=== PATIENT | male | born 1940 | race Caucasian/White ===

== ENCOUNTER → 2016-10-26 | Outpatient (CLI) | payer OTHER, MEDICARE ==
[~2016-10-26] MED LIST: ASPI81TA28 PO; CETICHW4 PO; ESZO3TAB15 PO; FLM4 PO; FLV1 PO; HYDR12.55 PO; METO-551 PO; MULT-589 PO; PRD75 PO; PRED-301 PO; PRT40 PO; SIMV40TA4 PO; THM100 PO; VTMD1000 PO
[2016-10-26 12:07] LABS: BASO % 0.4 %; BASO ABS # 0.02 K/uL (0-0.2); COMPLETE YES; EOS % 2.7 %; HEMATOCRIT 39.3 % (42-52); IG% 0.2 %; LYMPH % 19.6 %; LYMPH ABS # 1.09 K/uL (1.2-3.4); MEAN CELL VOLUME 94.7 fL (80-100); MEAN CORPUSCULAR HEMOGLOBIN 32.5 pg (25-34); MEAN CORPUSCULAR HGB CONC 34.4 g/dl (32-36); MEAN PLATELET VOLUME 9.8 fL (7.4-10.4); MONO % 11.5 %; NEUT % 65.6 %; PLATELET COUNT 229 K/uL (130-400); RED BLOOD COUNT 4.15 M/uL (4.7-6.1); WHITE BLOOD COUNT 5.57 K/uL (4.8-10.8)
[2016-10-26 12:38] LABS: ALB/GLOB RATIO 1.1 (0.9-2); ALT/SGPT 18 U/L (12-78); AST/SGOT 14 U/L (15-37); BLOOD UREA NITROGEN 29 mg/dl (7-18); BUN/CREATININE RATIO 22.5 (10-20); CALCIUM 8.5 mg/dl (8.5-10.1); CARBON DIOXIDE 29 mmol/L (21-32); CHLORIDE 101 mmol/L (98-107); GLUCOSE 107 mg/dl (70-99); POTASSIUM 3.7 mmol/L (3.5-5.1); SODIUM 138 mmol/L (136-145)
[2016-10-26 12:50] LABS: ALKALINE PHOSPHATASE 80 U/L (45-117); CHOLESTEROL 262 mg/dl (0-200); CHOLESTEROL/HDL RATIO 4.2; HDL CHOLESTEROL 63 mg/dl; LDL CHOLESTEROL CALCULATED 159 mg/dl; TRIGLYCERIDES 199 mg/dl (0-150); URIC ACID 4.9 mg/dl (2.6-7.2); VERY LOW DENSITY LIPOPROT CALC 40 mg/dl
== END | disposition home or self-care (01) ==
LOC: C.LAB1850 10:35
PROVIDERS: ATTEND Internal Medicine
DX: D64.9 Anemia, unspecified (principal); E53.8 Deficiency of other specified B group vitamins; I48.91 Unspecified atrial fibrillation; E78.5 Hyperlipidemia, unspecified; R73.01 Impaired fasting glucose; M10.9 Gout, unspecified

== ENCOUNTER → 2017-04-25 | Outpatient (CLI) | payer OTHER, MEDICARE ==
[2017-04-25 10:12] LABS: BASO % 0.3 %; BASO ABS # 0.02 K/uL (0-0.2); COMPLETE YES; EOS % 2.3 %; HEMATOCRIT 41.6 % (42-52); IG% 0.3 %; LYMPH % 16.7 %; LYMPH ABS # 1.14 K/uL (1.2-3.4); MEAN CELL VOLUME 98.1 fL (80-100); MEAN CORPUSCULAR HEMOGLOBIN 32.8 pg (25-34); MEAN CORPUSCULAR HGB CONC 33.4 g/dl (32-36); MEAN PLATELET VOLUME 10.2 fL (7.4-10.4); MONO % 9.7 %; NEUT % 70.7 %; PLATELET COUNT 196 K/uL (130-400); RED BLOOD COUNT 4.24 M/uL (4.7-6.1); WHITE BLOOD COUNT 6.82 K/uL (4.8-10.8)
[2017-04-25 10:24] LABS: ALT/SGPT 22 U/L (12-78); BLOOD UREA NITROGEN 26 mg/dl (7-18); BUN/CREATININE RATIO 21.3 (10-20); CALCIUM 9.1 mg/dl (8.5-10.1); CARBON DIOXIDE 28 mmol/L (21-32); CHLORIDE 103 mmol/L (98-107); CHOLESTEROL 173 mg/dl (0-200); GLUCOSE 102 mg/dl (70-99); POTASSIUM 4.4 mmol/L (3.5-5.1); SODIUM 138 mmol/L (136-145); URIC ACID 4.6 mg/dl (2.6-7.2)
[2017-04-25 10:27] LABS: ALB/GLOB RATIO 1.2 (0.9-2); ALKALINE PHOSPHATASE 84 U/L (45-117); AST/SGOT 25 U/L (15-37); CHOLESTEROL/HDL RATIO 2.4; HDL CHOLESTEROL 72 mg/dl; LDL CHOLESTEROL CALCULATED 81 mg/dl; TRIGLYCERIDES 100 mg/dl (0-150); VERY LOW DENSITY LIPOPROT CALC 20 mg/dl
--- NOTE | 2017-05-04 12:11 | CODING QUERY MEDICAL NECESSITY ---
CQSUPPORTING DIAGNOSIS NEEDED A supporting diagnosis is required for the test/procedure performed on this patient in order for us to be reimbursed by the patient's insurance. Please provide a supporting diagnosis for the following test/procedure listed below next to the test name along with your signature. *If there is no additional diagnosis for this patient that would support the following test/procedure please document that below next to the test/procedure. Test(s)/Procedure(s) that require a supporting diagnosis: DOS 04/25/17 VITAMIN D TEST Provider Signature: Date: Thank you Yuli Stinson [facility] Information Management Once completed, please kindly fax back to [phone] For questions please call [phone]
== END | disposition home or self-care (01) ==
LOC: C.LAB1850 09:16
PROVIDERS: ATTEND Internal Medicine
DX: D64.9 Anemia, unspecified (principal); M10.9 Gout, unspecified; E78.5 Hyperlipidemia, unspecified; E53.8 Deficiency of other specified B group vitamins; R20.0 Anesthesia of skin

== ENCOUNTER → 2017-07-17 | Outpatient (CLI) | payer OTHER, MEDICARE ==
--- NOTE | 2017-07-17 11:32 | DIAGNOSTIC IMAGING REPORT ---
R KNEE 1 OR 2 VIEWS HISTORY: 77 years-old Male B/L KNEE PAIN acute bilateral knee pain without reported trauma COMPARISON: Knee radiographs 05/01/2016 TECHNIQUE: AP, crosstable lateral and sunrise views of the bilateral knees FINDINGS: RIGHT: Prior medial compartment hemiarthroplasty with unchanged sclerosis of the medial tibial plateau. Chondrocalcinosis is noted throughout the right knee. Mild lateral and mild to moderate patellofemoral compartment osteoarthritis is noted with small joint effusion. No acute fracture or dislocation. Small joint effusion. Peripheral vascular disease. LEFT: Left knee total arthroplasty and prior patellar resurfacing. No evidence of acute fracture, dislocation or hardware complication. Hbwko-fs-skpjswip joint effusion. Peripheral vascular disease. IMPRESSION: 1. Chondrocalcinosis and right knee degenerative changes as above without acute fracture or dislocation. 2. Stable appearing postoperative changes of the bilateral knees as above. 3. Peripheral vascular disease. 4. Small right and uovth-ls-dgbrgzas left joint effusions. The above report was generated using voice recognition software. It may contain grammatical, syntax or spelling errors. Electronically signed by: Kar Hearn M.D. 07/17/2017 11:31 AM Dictated Date/Time: 07/17/2017 11:28 AM
== END | disposition home or self-care (01) ==
LOC: C.RDSM 11:50
PROVIDERS: ATTEND Physician Assistant
DX: Z96.659 Presence of unspecified artificial knee joint (principal); M25.562 Pain in left knee; M11.261 Other chondrocalcinosis, right knee; I73.9 Peripheral vascular disease, unspecified

== ENCOUNTER 2020-12-30 05:02 | Observation (INO) ==
--- NOTE | 2020-12-28 10:15 | Anesthesiology Consultation ---
Date of Service December 28, 2020 Assessment & Plan (1) Encounter for pre-operative examination: - COVID screening: Per assessment on 12/28: Travel screen negative, no known COVID-19 positive contacts or current COVID-19 related symptoms. Surgeon arranged preop COVID testing done 12/27 at [facility]- result was negative. - Cardiology office visit (12/17/20): "He is currently stable and asymptomatic from a cardiovascular standpoint with no anginal symptoms occurring at >4 METS of activity. He has no evidence of CHF. Most recent echo in June 2019 demonstrated normal LV systolic function with nonsevere valvular abnormality. He remains in atrial flutter with well controlled rate. His blood pressure is well controlled. Given this information, the patient is at an acceptable risk to proceed with upcoming surgery without any additional cardiovascular testing or intervention. He may hold Eliquis as instructed by his surgeon, and resume once safe from a bleeding standpoint. Recommend he remain on beta abdi therapy t hroughout the perioperative period." - PCP office visit (12/16/20): "estimated risk probability for perioperative ANTONIA low" - S/P Left Direct Inguinal Hernia Repair with Mesh, Excision of lipoma (01/15/20): LMA#[address] [facility] - Eliquis instructions: patient made aware that in order for spinal anesthesia, Eliquis needs to be held 72 hours/3 days prior to surgery. Patient voiced understanding/will check if okay with prescriber. Chart Review Chart Review: Acceptable Risk for Surgery and Patient NOT seen in Pre Admission Testing (was previously seen at [facility] 12/16) History Surgery Operation Date: 12/30/20 07:15 Proposed Procedures p Right Total Hip Arthroplasty - Surinder Simon MD Height/Weight Height: 5 ft 10 in Weight: 81.647 kg Allergies Allergy/AdvReac Type Severity Reaction Status Date / Time mold Allergy Unknown Sinus Verified 12/28/20 09:41 drainage No Known Drug Allergies Allergy Unknown None Verified 12/28/20 09:41 Medications Home Medications Medication Instructions Recorded Confirmed Last Taken mecobalamin (vitamin B12) 5,000 5,000 mcg PO QAM tab 06/16/19 12/28/20 09/20/20 mcg disintegrating tablet hydrochlorothiazide 25 mg PO QAM 03/18/20 12/28/20 09/20/20 diclofenac sodium 2 g TOPICAL UD PRN 09/02/20 12/28/20 Unknown allopurinol 100 mg tablet 100 mg PO BID #180 tab 10/11/20 12/28/20 Unknown simvastatin 20 mg tablet 20 mg PO QPM #90 tab 11/01/20 12/28/20 Unknown metoprolol tartrate 50 mg tablet 50 mg PO BID #180 tab 11/08/20 12/28/20 Unknown pantoprazole 40 mg tablet,delayed 40 mg PO QAM #90 tab 11/08/20 12/28/20 Unknown release tamsulosin 0.4 mg capsule 0.4 mg PO BID 30 Days #60 cap 11/09/20 12/28/20 Unknown apixaban 5 mg tablet 5 mg PO BID #180 tab 11/15/20 12/28/20 Unknown prednisone 5 mg tablet 5 mg PO QAM #90 tab 11/15/20 12/28/20 Unknown cholecalciferol (vitamin D3) 50 mcg PO QAM 12/15/20 12/28/20 Unknown finasteride 5 mg PO QPM 12/15/20 12/28/20 Unknown mirabegron [Myrbetriq] 50 mg PO QPM 12/15/20 12/28/20 Unknown gabapentin 600 mg tablet 600 mg PO .COMPLEX tab 12/17/20 12/28/20 Unknown Past Medical History Medical History Anemia Ascending aorta dilatation Per records Atrial flutter Dx 2-3 years ago - current eliquis/metoprolol - Follows w/ dr. downing BCC (basal cell carcinoma) s/p excision Bifascicular block RBBB + LAFB (chronic) Chronic steroid use For osteoarthritis per pt History of BPH Hypertension Neuropathy Osteoarthritis Sleep apnea CPAP Spinal stenosis of lumbar region with radiculopathy Past Family History Family History Father Myocardial infarction Stroke Mother Alzheimer disease Brother Cancer Knee injury Denies family history of Ovarian cancer Prostate cancer Breast cancer Lung cancer Colorectal cancer Past Surgical History Surgical History H/O left inguinal hernia repair (01/15/20) Left Direct Inguinal Hernia Repair with Mesh, Excision of lipoma (01/15/20): LMA#[address] [facility] History of arthroscopy of knee + lateral meniscectomy (Lx2, Rx1) History of arthroscopy of left shoulder 08/27/[place] [place] History of colonoscopy History of sinus surgery History of tonsillectomy History of total knee replacement R/L S/P epidural steroid injection x2 Status post Mohs micrographic surgery for basal cell carcinoma (BCC) Facial (2017) Status post trigger finger release Right hand (3rd digit) Social History Smoking Status: Former smoker tobacco type: cigarettes Smoking cigarettes per day: 20 Do You Dip or Chew Tobacco: No Smoking End Date: QUIT 1977 Hx Alcohol Use: Yes Alcohol type: beer, wine and hard liquor alcohol intake frequency: 0-2 drinks per day Hx Substance Use: No substance use type: does not use Lab Results Anesthesia Preop Results Results Anesthesia Widget: WBC 5.86 K/uL (4.8-10.8) 11/25/20 Hgb 14.2 g/dL (14.0-18.0) 11/25/20 Hct 41.9 % (42-52) L 11/25/20 Plt 240 K/uL (130-400) 11/25/20 Na 140 mmol/L (136-145) 11/25/20 K 4.5 mmol/L (3.5-5.1) 11/25/20 Cl 105 mmol/L (98-107) 11/25/20 CO2 30 mmol/L (21-32) 11/25/20 BUN 33 mg/dl (7-18) H 11/25/20 Creat 1.12 mg/dl (0.6-1.4) 11/25/20 Glucose Level 96 mg/dl (70-99) 11/25/20 PT 10.4 Seconds (9.0-12.0) 12/16/20 INR 1.0 (0.9-1.1) 12/16/20 TSH 0.851 uIu/ml (0.300-4.500) 11/25/20 Free T4 0.85 ng/dl (0.8-1.6) 11/25/20 HA1c 5.9 % (4.5-5.6) H 11/25/20 Urine Color Yellow 12/16/20 Urine Appearance Clear (Clear) 12/16/20 Urine pH 7.0 (4.5-7.5) 12/16/20 Urine Specific Beacon 1.016 (1.000-1.030) 12/16/20 Urine Protein Negative (Negative) 12/16/20 Urine Glucose (UA) Negative (Negative) 12/16/20 Urine Ketones Negative (Negative) 12/16/20 Urine Blood Negative (Negative) 12/16/20 Urine Nitrite Negative (Negative) 12/16/20 Urine Bilirubin Negative (Negative) 12/16/20 Urine Urobilinogen Negative (Negative) 12/16/20 Urine Leukocyte Esterase Negative (Negative) 12/16/20 Blood Type O Negative 12/16/20 Antibody Screen NEGATIVE 12/16/20 Testing Electrocardiogram Date: 12/17/20 A. flutter at 62bpm. RBBB. LAFB > known hx of bifascicular block* Chest X-Ray Date: 01/12/20 FINDINGS: Biapical scarring is noted. Mild to moderate cardiomegaly is noted. There is no evidence for pulmonary edema or pneumonia. No pneumothorax or pleural effusion is noted. Mediastinal contours are stable. IMPRESSION: No acute cardiopulmonary findings. Cardiomegaly. No change in appearance of the chest. Echocardiogram Date: 06/09/19 EF: 55-60% RWMA: + none Other Findings: no LVH Valvular Disease: + MR (moderate) Mildly dilated RV with grossly normal systolic function. Severe LA dilation, moderate RA dilation. Mild pHTN with RVSP 46mmHg. Rhythm is atrial flutter with ventricular rate in the 50s. Similar findings compared to 06/03/18 echo.
[2020-12-30] MEDS ORDERED: LR 500ML BOLUS, THEN 15ML/HR IV SCH (06:00)
[2020-12-30] MEDS ORDERED: BUPIVACAINE 0.5 % 5 MG/1 ML PF 10ML VIAL ONE (06:19)
[2020-12-30] MEDS ORDERED: ONDANSETRON INJ 2 MG/ML 2 ML VIAL IV PRN ×2 (06:41→09:17)
[2020-12-30] MEDS ORDERED: ATROPINE SULFATE 0.1 MG/ML 10ML SYR IV PRN (06:41)
[2020-12-30] MEDS ORDERED: fentaNYL citrate 100 MCG/2 ML VIAL IV PRN (06:41)
[2020-12-30] MEDS ORDERED: ePHEDrine sulfate 50 MG/ML AMP IV PRN (06:41)
[2020-12-30] MEDS ORDERED: HYDROmorphone INJ 2 MG/ML SYR/VIAL IV PRN (06:41)
[2020-12-30] MEDS ORDERED: PROPOFOL IV EMULSION 10 MG/ML 20 ML VIAL IV ONE ×3 (06:47→08:33)
[2020-12-30] MEDS ORDERED: fentaNYL citrate 100 MCG/2 ML VIAL ONE (06:47)
[2020-12-30] MEDS ORDERED: LIDOCAINE 2% 2 ML VIAL/AMP(20MG/ML) INFIL ONE (06:47)
[2020-12-30] MEDS ORDERED: ONDANSETRON INJ 2 MG/ML 2 ML VIAL ONE (06:47)
[2020-12-30] MEDS ORDERED: TRANEXAMIC ACID / 0.7% NACL 1000MG/100ML BAG IV ONE (06:48)
[2020-12-30] MEDS ORDERED: ceFAZolin 2,000 MG/15 ML IV PUSH IV ONE (06:48)
[2020-12-30] MEDS ORDERED: ROPIVACAINE 0.5% HCL/PF 150 MG, BUPIVACAINE 0.75% MPF 20 ML, EPINEPHrine 0.15 MG, Ketor... INFIL SCH (07:15)
--- NOTE | 2020-12-30 07:19 | History & Physical Bridge Note ---
Date of Service December 30, 2020 History & Physical Bridge Note I have examined the patient, reviewed the History & Physical and in the interval since the performance of the History & Physical I have noted the following changes of clinical significance: no changes noted
[2020-12-30] MEDS ORDERED: ePHEDrine sulfate 50 MG/ML SYR ONE (08:18)
[2020-12-30] MEDS ORDERED: TRANEXAMIC ACID / 0.7% NACL 1,000 MG/100 ML BAG IV ONE (08:37)
--- NOTE | 2020-12-30 09:16 | Operative Report ---
Post Operative Report Pre & Post Diagnosis Operation Date: 12/30/20 07:15 Pre-Op Diagnosis: Right Hip Arthritis, Avascular Necrosis Post-Op Diagnosis: Right Hip Arthritis, Avascular Necrosis I identified the patient and participated in the time-out.: Yes Procedure Operation Date: 12/30/20 07:15 Actual Procedures p Right Total Hip Arthroplasty(Right) - Surinder Simon MD Surgeon Surinder Simon MD Air Marshal ZEKE Pastor PA-C. No resident or fellow was available to assist Estimated Blood Loss 100 Findings See Below Patient had significant calcification of his labrum. We had planned on a dual mobility prosthesis. However this gave us too much offset with leg length discrepancy. We had great stability so I simply elected to do a standard bearing surface with ceramic on polyethylene. Specimens Right femoral head Anesthesia Type Spinal MAC Complications none Disposition Accompanied Patient To Recovery: No Disposition: Recovery Room Indications 80-year-old gentleman with severe right hip pain. X-rays demonstrate mild to moderate osteoarthritis with collapse of the superior femoral head consistent with avascular necrosis. Medical history is notable for atrial fibrillation on Eliquis. He actually was on the surgery schedule for a week ago but fell onto some asphalt sustaining abrasions on both lower extremities. We therefore canceled the last week to give him a week to allow these wounds to heal. His wounds have now scabbed over with no evidence of infection and good healing. After reviewing all the risks and benefits of surgery, alternatives to surgery, and expected outcomes, patient elected to proceed. All questions were answered. Informed consent was signed. Description of Procedure Patient was identified in the preoperative holding area and the surgical site, right hip, was marked. A spinal anesthetic was placed, then the patient was brought back to the main operating room, placed in the operating table and moved into the lateral decubitus position. Axillary roll was placed. All bony prominences were padded. Perioperative antibiotics and tranexamic acid 1 gram IV were administered. Operative extremity was prepped and draped in the normal sterile fashion. Prior to incision a multidisciplinary timeout was called. All in the room were in agreement. We began by making an incision for a posterior approach to the hip. We dissected down through subcutaneous tissues to the level of the fascia. The fascia was incised in line with the incision. Charnley bow was placed. The tr ochanteric bursa was excised. The piriformis and short external rotators were dissected off the posterior aspect of the hip. A box cut was made in the capsule. The femoral head was dislocated. The femoral neck cut was made at our preoperative template. The acetabulum was then exposed. The labrum was sharply excised. Contents of the cotyloid fossa were removed with electrocautery. We then began reaming at a size 8 mm less than our preoperative template. We reamed up by 1 [address] the way up to a size 56 mm cup. This gave us good bleeding cancellus bone circumferentially. The acetabulum was then irrigated out and dried. The real Howard Gription cup was then impacted down into position with 45 degrees of lateral opening and 25 degrees of anteversion. A single cancellous bone screw was placed up into the ilium. Excellent fixation was obtained. Trial liner for the dual mobility cup was then placed. Next we turned our attention to the femur. The lateral neck was removed with a box osteotome. Intramedullary guide was used followed by the lateralizing reamer. We then reamed up to a size 7 [place] stem. We then broached all the way up to a size 7. We began trialing with a high offset neck and a +1.5 head. Hip was reduced. Leg lengths were touch longer on the operative side. His anterior capsule was tight and he was not able to get full extension. Therefore I elected to remove the trial liner in place a neutral Ultrex polyethylene for 36 mm femoral head. We then trialed with a high offset neck and a +1.5 mm head. The hip was stable in extension and external rotation, and stable in the sleeper position. At 90 degrees of hip flexion the hip could be internally rotated [] degrees before levering out of the cup. I was very happy with the stability exam. Therefore the hip was dislocated and the femoral trial was removed. The femoral canal was irrigated and dried. The real size 7 offset [place] femoral stem was opened up. This was impacted down into position. It sat at the same level as the femoral trial. Therefore the 36 mm ceramic femoral head with a +1.5 mm offset was opened up and gently impacted down onto the trunnion. The hip was atraumatically reduced. Another 1 gram of IV tranexamic acid was started prior to closure. The wound was irrigated out with sterile Betadine solution. The periarticular injection cocktail was then placed. The short external rotators, piriformis, and posterior capsule were repaired through drill holes in the greater trochanter using #2 Vicryl. The fascia was run with a looped #1 PDS. The subcutaneous layer was closed with #1 PDS. The dermal layer was closed with 2-0 Vicryl. Zip line was used for the skin followed by a Silverlon dressing. A compressive dressing was then placed. The patient was then rolled supine. Leg lengths were rechecked and were symmetric. An abduction pillow was placed. Sedation was lifted and the patient was transferred to recovery room in stable condition. Summary of implants: Depuy Howard Gription Acetabular Shell Sector Cup, 56 mm outer diameter Howard Cancellous bone screw, 6.5 x 35 mm Howard Altrx Polyethylene Acetabular Liner, Neutral, with a 36 mm inner diameter DePuy [place] Femoral stem with Porocoat, 12/14 taper, size 7 high offset 36 mm ceramic femoral head with +1.5 offset Postoperative course: Patient will be admitted to the hospital from the recovery room. Patient will be weightbearing as tolerated with posterior hip precautions. Resume Eliquis tomorrow for DVT prophylaxis I attest to the content of the Intraoperative Record and any orders documented therein. Any exceptions are noted below.
[2020-12-30] MEDS ORDERED: HYDROmorphone INJ 0.5 MG/0.5 ML SYR IV PRN (09:17)
[2020-12-30] MEDS ORDERED: ALUMINUM/MAGNESIUM SUSP 30 ML UDC PO PRN (09:17)
[2020-12-30] MEDS ORDERED: diphenhydrAMINE 50 MG/ML VIAL IV PRN (09:17)
[2020-12-30] MEDS ORDERED: oxyCODONE HCL IR 5 MG TAB (IMMEDIATE RELEASE) PO PRN (09:17)
[2020-12-30] MEDS ORDERED: NALOXONE HCL 0.4 MG/1 ML VIAL/CARP IV PRN (09:17)
[2020-12-30] MEDS ORDERED: bisacodyL 10 MG SUPP PR PRN (09:17)
[2020-12-30] MEDS ORDERED: TAMSULOSIN HCL 0.4 MG CAP PO PRN (09:17)
[2020-12-30] MEDS ORDERED: MAGNESIUM HYDROXIDE SUSP 30 ML UDC PO PRN (09:17)
[2020-12-30] MEDS ORDERED: METOCLOPRAMIDE HCL INJ 5 MG/ML 2 ML VIAL IV PRN (09:17)
--- NOTE | 2020-12-30 09:17 | Operative Report ---
Post Operative Report Pre & Post Diagnosis Operation Date: 12/30/20 07:15 Pre-Op Diagnosis: Right Hip Avascular Necrosis Post-Op Diagnosis: Right Hip Avascular Necrosis I identified the patient and participated in the time-out.: Yes Procedure Operation Date: 12/30/20 07:15 Actual Procedures p Right Total Hip Arthroplasty(Right) - Surinder Simon MD Surgeon Surinder Simon MD Principal Strategist Genie Pastor PA-C Estimated Blood Loss 100 Findings Consistent with Post-Op Diagnosis Specimens Femoral head Complications none Disposition Accompanied Patient To Recovery: No Disposition: Recovery Room Description of Procedure I was present during the entire case assisting with positioning, prepping, draping, wound retraction, wound closure, dressing and abduction pillow placement. No fellow available for this case. Please see Dr. Simon Operative note for specifics of the case I attest to the content of the Intraoperative Record and any orders documented therein. Any exceptions are noted below.
--- NOTE | 2020-12-30 10:01 | XRay Report ---
XR pelvis 1-2V routine CLINICAL HISTORY: Post Surgical COMPARISON: 12/10/2020 DISCUSSION: There are postsurgical changes of a total right hip arthroplasty. The acetabular and femo ral components appear well seated. There is no dislocation. There is gas within the soft tissues cons istent with recent surgery. IMPRESSION: Postsurgical changes of a total right hip arthroplasty. ACT 112: Negative or not required by law. Electronically signed by: Jason Nolasco M.D. 12/30/2020 10:00 AM
--- NOTE | 2020-12-30 10:17 | Anesthesiology Progress Note ---
Date of Service December 30, 2020 Anesthesia Post Procedure Vital Signs Vital Signs: Temp Pulse Pulse Resp BP BP Pulse Ox 12/30/20 10:02 36.4 C L 53 L 16 134/78 95 12/30/20 09:45 36.4 C L 54 L 16 126/70 96 12/30/20 09:35 52 L 16 126/66 97 12/30/20 09:25 52 L 16 129/68 95 12/30/20 09:16 36.3 C L 54 L 16 116/67 97 12/30/20 05:37 36.5 C 60 18 158/94 H 97 Transfer of Care Handoff Completed per policy Notes Mental Status: alert / awake / arousable and participated in evaluation Patient Amnestic to Procedure: Yes Nausea / Vomiting: adequately controlled Pain: adequately controlled Airway Patency, RR, SpO2: stable & adequate BP & HR: stable & adequate Hydration State: stable & adequate Anesthetic Complications: no major complications apparent and Pt Satisfied with anesthetic care
[2020-12-30] MEDS: SODIUM CHLORIDE 0.9% 1000ML 1,000 ML IV SCH ×2 (11:10→20:03)
[2020-12-30] MEDS: GABAPENTIN 600 MG TAB PO SCH (12:05)
[2020-12-30] MEDS: KETOROLAC TROMETHAMINE 15 MG/ML VIAL IV SCH ×3 (12:05→21:55)
[2020-12-30] MEDS: ACETAMINOPHEN 500 MG TAB PO SCH ×2 (13:13→21:55)
[2020-12-30] MEDS ORDERED: TRANEXAMIC ACID / 0.7% NACL 1,000 MG/100 ML BAG IV SCH (15:30)
[2020-12-30] MEDS: ceFAZolin 2000MG 2,000 MG/15 ML SYR IV SCH (16:41)
[2020-12-30] MEDS: METOPROLOL TARTRATE 50 MG TAB PO SCH (18:23)
[2020-12-30] MEDS ORDERED: hydroCHLOROthiazide 25 MG TAB PO ONE (18:30)
[2020-12-30] MEDS ORDERED: METOPROLOL TARTRATE 50 MG TAB PO ONE (18:30)
[2020-12-30] MEDS: TAMSULOSIN HCL 0.4 MG CAP PO SCH (19:59)
[2020-12-30] MEDS: DOCUSATE SODIUM 100 MG CAP PO SCH (20:00)
[2020-12-30] MEDS: allopurinoL 100 MG TAB PO SCH (20:00)
[2020-12-30] MEDS ORDERED: SENNA 8.6 MG TAB PO SCH (21:00)
[2020-12-30] MEDS ORDERED: FINASTERIDE 5 MG TAB PO SCH (21:00)
[2020-12-30] MEDS ORDERED: SIMVASTATIN 20 MG TAB PO SCH (21:00)
[2020-12-30] MEDS ORDERED: MIRABEGRON ER 25 MG TAB PO SCH (21:00)
[2020-12-31] MEDS: ceFAZolin 2000MG 2,000 MG/15 ML SYR IV SCH (00:21)
[2020-12-31] MEDS: ACETAMINOPHEN 500 MG TAB PO SCH ×2 (05:09→14:22)
[2020-12-31] MEDS: KETOROLAC TROMETHAMINE 15 MG/ML VIAL IV SCH (05:10)
[2020-12-31 05:41] LABS: Hematocrit (blood only) 33.6 % (42-52); Hemoglobin 11.1 g/dL (14.0-18.0); Immature Granulocytes # (auto) 0.01 K/uL (0.00-0.02); Immature Granulocytes % (auto) 0.1 %; Lymphocytes # (auto) 0.68 K/uL (1.2-3.4); Lymphocytes % (auto) 7.4 %; Mean Corpuscular Hemoglobin 32.8 pg (25-34); Mean Corpuscular Volume 99.4 fL (80-100); Mean Platelet Volume 10.1 fL (7.4-10.4); Monocytes # (auto) 0.67 K/uL (0.11-0.59); Monocytes % (auto) 7.3 %; Neutrophils # (auto) 7.78 K/uL (1.4-6.5); Neutrophils % (auto) 85.2 %; Platelet Count 158 K/uL (130-400); RDW Coefficient of Variation 14.1 % (11.5-14.5); RDW Standard Deviation 50.5 fL (36.4-46.3); Red Blood Count 3.38 M/uL (4.7-6.1); White Blood Count 9.14 K/uL (4.8-10.8)
[2020-12-31 06:07] LABS: BUN Creatinine Ratio 20.8 (10-20); Calcium 8.1 mg/dl (8.5-10.1); Creatinine Clr Calc Pharmacy 48.7 ml/min; Est GFR (African American) 57.7 ml/min; Est GFR (Non-African American) 49.8 ml/min; Potassium 4.6 mmol/L (3.5-5.1)
[2020-12-31] MEDS ORDERED: dexAMETHasone 4 MG TAB PO SCH (08:00)
[2020-12-31] MEDS: GABAPENTIN 600 MG TAB PO SCH (08:48)
[2020-12-31] MEDS: DOCUSATE SODIUM 100 MG CAP PO SCH (08:49)
[2020-12-31] MEDS: allopurinoL 100 MG TAB PO SCH (08:49)
[2020-12-31] MEDS: TAMSULOSIN HCL 0.4 MG CAP PO SCH (08:49)
[2020-12-31] MEDS: METOPROLOL TARTRATE 50 MG TAB PO SCH (08:51)
[2020-12-31] MEDS ORDERED: PANTOprazole 40 MG TAB PO SCH (09:00)
[2020-12-31] MEDS ORDERED: CeleBREX 200 MG CAP PO SCH (09:00)
[2020-12-31] MEDS ORDERED: CYANOCOBALAMIN (VITAMIN B-12) 2,500 MCG TAB.SUBL SL SCH (09:00)
[2020-12-31] MEDS ORDERED: predniSONE 5 MG TAB PO SCH (09:00)
[2020-12-31] MEDS ORDERED: APIXABAN 5 MG TABLET PO SCH (09:00)
[2020-12-31] MEDS ORDERED: hydroCHLOROthiazide 25 MG TAB PO SCH (09:00)
[2020-12-31] MEDS ORDERED: MULTIVITAMIN TAB PO SCH (09:00)
[2020-12-31] MEDS ORDERED: CHOLECALCIFEROL 1,000 UNITS 25 MCG TAB PO SCH (09:00)
--- NOTE | 2020-12-31 09:58 | Orthopedic Progress Note ---
Date of Service December 31, 2020 Assessment & Plan (1) S/P total hip arthroplasty: Total hip precautions reviewed. I advised patient is very important that he follow these precautions Weightbearing as tolerated with walker assistance Abduction pillow use x6 weeks DVT prophylaxis with MERCED stockings and Eliquis Pain control with p.o. medication Ice with EZ wrap Keep Silverlon dressing in place until 2-week follow-up Plan is for in-home physical therapy for the first 2 weeks postoperatively Follow up with [facility] orthopedics as previously scheduled With questions contact our clinic at area code [phone]. Admission and Anticipated Discharge Date Admission Date: December 30, 2020 Subjective This 80-year-old male is day 1 status post right total hip arthroplasty. He states that he is doing very well. He has no pain in his hip whatsoever. States he is very anxious about being discharged home because today is his anniversary. He denies chest pain, shortness breath, fever, chills, sweats, lethargy, weakness or numbness or tingling in his right lower extremity. Review of Systems Review of Systems: All systems reviewed & are unremarkable except as noted in Subjective Physical Exam Physical Exam: Right hip: Outer dressing was removed. Silverlon is intact clean and dry without any drainage noted on the central portion. Patient is able to actively perform a straight leg raise test and dorsi and plantarflex foot. Quad strength is 3-1/2 out of 5. Knee range of motion from 0 to 90 degrees causes no pain. Light passive internal and external hip rotation causes no pain. Logroll test is negative. Patient's peripheral pulses are easily palpable. His capillary fill is less than 2 seconds. He is neurovascularly intact in the right lower extremity. Results & Data ([facility]) Vital Signs (Past 12 Hours) Vital Signs Temp Pulse Pulse Resp BP Pulse Ox 12/31/20 08:46 65 125/76 12/31/20 07:32 36.5 C 52 L 16 131/80 97 12/31/20 04:00 36.9 C 56 L 16 123/72 99 12/30/20 22:40 36.9 C 58 L 16 126/70 97 Laboratory Results 12/31/20 12/31/20 Range/Units 05:24 05:24 WBC 9.14 (4.8-10.8) K/uL RBC 3.38 L (4.7-6.1) M/uL Hgb 11.1 L (14.0-18.0) g/dL Hct 33.6 L (42-52) % MCV 99.4 (80-100) fL MCH 32.8 (25-34) pg MCHC 33.0 (32-36) g/dL RDW Std Deviation 50.5 H (36.4-46.3) fL RDW Coeff of Bautista 14.1 (11.5-14.5) % Plt Count 158 (130-400) K/uL MPV 10.1 (7.4-10.4) fL Immature Gran % (Auto) 0.1 % Neut % (Auto) 85.2 % Lymph % (Auto) 7.4 % Hooker % (Auto) 7.3 % Eos % (Auto) 0.0 % Baso % (Auto) 0.0 % Neut # (Auto) 7.78 H (1.4-6.5) K/uL Lymph # (Auto) 0.68 L (1.2-3.4) K/uL Hooker # (Auto) 0.67 H (0.11-0.59) K/uL Eos # (Auto) 0.00 (0-0.5) K/uL Baso # (Auto) 0.00 (0-0.2) K/uL Immature Gran # (Auto) 0.01 (0.00-0.02) K/uL Sodium 136 (136-145) mmol/L Potassium 4.6 (3.5-5.1) mmol/L Chloride 105 (98-107) mmol/L Carbon Dioxide 26 (21-32) mmol/L Anion Gap 5.0 (3-11) BUN 28 H (7-18) mg/dl Creatinine 1.33 (0.6-1.4) mg/dl Est Cr Clr Drug Dosing 48.7 ml/min Est GFR ( Amer) 57.7 ml/min Est GFR (Non-Af Amer) 49.8 ml/min BUN/Creatinine Ratio 20.8 H (10-20) Glucose 151 H (70-99) mg/dl Calcium 8.1 L (8.5-10.1) mg/dl
--- NOTE | 2020-12-31 10:05 | Discharge Summary ---
Date of Service December 31, 2020 Admission HPI Per Admitting Provider History of Present Illness (including history relevant to procedure): This 80-year-old male presents the clinic today for his preoperative history and physical. Patient has a medical history significant for atrial fibrillation, on Eliquis. He was on Pradaxa for 10 years before switching to Eliquis a year ago. He also has obstructive sleep apnea and uses a CPAP. He started getting pain in his right hip 10 weeks ago. No trauma at that time. He had gotten a cortisone injection in his back 3 days before and is not sure if this is related at all. Pain has progressively worsened over the last 10 weeks. He was r eferred to one of our Sports Medicine doctors for a cortisone injection. They showed Dr. Simon his x-rays last week, which showed avascular necrosis and he counseled them about him having to wait 3 months for hip replacement if he were to get the injection. The patient declined the injection that day and was subsequently evaluated for a total hip replacement Admission Exam Per Admitting Provider Physical Exam: (relevant to the procedure, including heart and lung evaluation) General: Alert and oriented x3 with proper grooming and hygiene Eyes: Pupils are equal reactive to light with accommodation. Extraocular movements are intact Throat: Deferred due to COVID-19 precautions Cardiac: Irregularly irregular rate and rhythm consistent with atrial fibrillation. No murmurs or gallops appreciated Lungs: Clear to auscultation throughout with no wheezing, rales or rhonchi Abdomen: Nonobese, nondistended, nontender with normoactive bowel sounds Extremities: Right hip exam shows the patient to have pain with flexion past 115 degrees in the seated position. He has pain with internal rotation past 10 degrees and external rotation past 50 degrees. Distally neurovascularly intact. Neuro: Cranial nerves II through XII are intact no motor or sensory deficit Skin: Normal in appearance with no open skin areas or discharge Principal Diagnosis Right hip Avascular necrosis Discharge Exam Right hip: Outer dressing was removed. Silverlon is intact clean and dry without any drainage noted on the central portion. Patient is able to actively perform a straight leg raise test and dorsi and plantarflex foot. Quad strength is 3-1/2 out of 5. Knee range of motion from 0 to 90 degrees causes no pain. Light passive internal and external hip rotation causes no pain. Logroll test is negative. Patient's peripheral pulses are easily palpable. His capillary fill is less than 2 seconds. He is neurovascularly intact in the right lower extremity. Discharge Data Allergies Allergy/AdvReac Type Severity Reaction Status Date / Time mold Allergy Unknown Sinus Verified 12/30/20 05:32 drainage No Known Drug Allergies Allergy Unknown None Verified 12/30/20 05:32 Procedures Performed Operation Date: 12/30/20 07:15 Actual Procedures p Right Total Hip Arthroplasty(Right) - Surinder Simon MD Hospital Course (1) S/P total hip arthroplasty: Patient did have a small bout of hypertension yesterday afternoon that was resolved after he was given his daily blood pressure medication. Patient states that he held the medication the morning of surgery. Patient is very pleased with the surgery. He states that he has no pain in his hip. He is ready to be discharged home with in-home physical therapy for the first 2 weeks postoperatively. Total hip precautions reviewed. I advised patient is very important that he follow these precautions Weightbearing as tolerated with walker assistance Abduction pillow use x6 weeks DVT prophylaxis with MERCED stockings and Eliquis Pain control with p.o. medication Ice with EZ wrap Keep Silverlon dressing in place until 2-week follow-up Plan is for in-home physical therapy for the first 2 weeks postoperatively Follow up with [facility] [address] orthopedics as previously scheduled With questions contact our clinic at area code [phone]. Total Time Total Time Spent Total Time Spent (In Minutes): 20 minutes Total Time Includes: Examination of the Patient, Discharge Planning and Medic ation Reconciliation Discharge Plan Discharge Items Patient Disposition: Home - Home Health Services Reason For Visit: Right Hip Avascular Necrosis Discharge Diagnosis: Right hip avascular necrosis Activity: As commented below Lifting: None Bathing: Keep incision dry Bathing Comment: May shower tomorrow Sexual Activity: Wait until after follow-up appointment Exercise/Sports: Wait until after follow-up appointment Driving/Machine Use: No driving until cleared by orthopedic surgeon Weightbearing: Right weightbearing Weightbearing Comment: As tolerated with walker assistance Non-emergency contact: Primary Care Provider Call non-emergency contact if: you have any medication questions, your pain is not controlled, your wound has increased drainage and your wound pain has increased Follow-up/Referrals: Balabanova-Tsarnakov,Ralitsa V., MD [Primary Care Provider] - Diet: Regular Addtl Attending Provider Instructions: Post-operative Instructions Dear Patient and Family/Friends, Before you are discharged from the hospital, it is important to know what to expect when you get home after surgery. To that end, we have created this sheet of discharge instructions which covers many commonly asked questions. Make sure you go through this sheet in its entirety with your nurse before you are discharged. Please note that we will go over the specifics of your surgery and recovery when you return for your first post-operative visit. Sincerely, Dr. Simon Medications 1. Oxycodone 5 mg tablet: Take 1-2 tabs every 4-6 hours as needed for pain. Prescription for this medication will be sent to your pharmacy. 2. Diclofenac sodium 75 mg tablet: Take 1 tablet twice daily for 30 days postoperatively for pain and inflammation relief. A prescription will be sent to your pharmacy with 1 refill. 3. Eliquis 5 mg tablet: Please resume your normal dosage for blood clot prevention & your atrial fibrillation. 4. Extra strength Tylenol 500 mg tablet: Take 2 tablets every 6-8 hours as needed for supplemental pain control. Please purchase this medication. Pain Expect to be in a fair amount of pain after surgery. Remember, our goal is not to eliminate your pain, but to make it tolerable. It is a good idea to stay ahead of your pain by taking the medications you were prescribed once you get home. Typically, the pain starts improving 3-7 days after surgery. You should start weaning off the narcotic pain medication (oxycodone, hydrocodone, hydromorphone, morphine) as soon as your pain improves. Please call our office if your pain is not adequately controlled. Ice Ice your operative site at least 5 times a day for 15-30 minutes at a time. Make sure you have a thin cloth between the ice or cooling unit and your skin to prevent stroud bite. This is especially important if you received a nerve block. Continue icing your operative site for the first 5-7 days after surgery, then as needed. Diet/Nausea/Vomiting Start by drinking clear liquids and eating crackers. If you can tolerate this, then you may resume your normal diet. If you feel nauseated or vomit, take Zofran/ondansetron (if prescribed). Please call our office if you have intractable nausea or vomiting, or, if after hours, you may go to the Emergency Room for help. Constipation Constipation is a common side effect of narcotic pain medication. If you have not had a bowel movement within 2 days after surgery, we recommend purchasing an over the counter laxative such as Milk of Magnesia, Dulcolax, or Miralax from a local pharmacy, and taking it as instructed. Call our clinic if any questions. Nerve block The anesthesia team sometimes places a nerve block to help with post-operative pain control. This results in significant numbness and inability to move the extremity. The nerve block usually wears off in 8-12 hours, but sometimes can last up to 24 hours. Please call our office if you are still unable to move your extremity after 24 hours, unless you received a pain pump to take home. Nerve blocks typically wear off quickly, so start taking pain medication as soon as you start feeling soreness near your surgical site. Weight bearing and Range of Motion. Do not bear any weight through your operative extremity immediately after surgery. If you had upper extremity surgery, do not lift anything with that arm. If you are in a knee brace, keep it locked in place until your follow-up. We will discuss your weight bearing, range of motion, and lifting restrictions in detail at your first post-operative appointment. Continuous Passive Motion (CPM) Machine If you were prescribed a CPM machine, it will start after your first post- operative appointment, at which time we will give you instructions on the range of motion settings and duration of treatment Physical therapy You will be given a prescription for physical therapy or occupational therapy at your first post-operative appointment. Typically, patients start therapy within 1 week of surgery Wound care and showering We will inspect your wound at your first post-operative visit, and may do a dressing change at that time. Most patients will be in a water-proof dressing that is removed 14 days after surgery. It is normal to see some dried blood on the dressing. Do not remove your dressing, paper strips or sutures yourself unless you are given permission. Showering is allowed the day after surgery. Do not scrub or remove any dressings. The wound should not be submerged underwater (i.e. in a bathtub or pool) until 4 weeks after surgery MERCED stockings If you were given white stockings, these are to be worn at all times except to shower (on both legs) for the first 2 weeks after surgery. Driving You may not drive while taking narcotic pain medication or while in a cast, splint, sling or brace. You, the patient, need to make the final determination about when you are safe to drive, however, the earliest you may consider driving after surgery is below: Hand/Wrist/Elbow Surgery: 3 days Shoulder Surgery: 2 weeks Hip,/Knee/Ankle Surgery: 4 weeks Fracture repair: 6 weeks Return to Work Your return to work depends on what surgery was done and what type of work you do. Please bring any paperwork your employer needs completed to your first post-operative visit. Also, bring a description of your job duties, as this helps us to understand what risks you may face at work. Travel Avoid long distance travel (greater than 1 hour) in airplanes and cars for the first 6 weeks after surgery. If you must travel, you need to have a Doppler ultrasound done before you travel to rule out a blood clot in your legs. Follow-up You should have a follow-up appointment already scheduled 1-2 days after surgery. If not, please contact our office to make this appointment before you leave the hospital. When to call the office It is normal to have swelling and bruising in the limb that was operated on. This will improve with time. It is also normal to have fevers for the first 2 days after surgery. Reasons you should call your doctor include: Uncontrolled pain; Nausea, vomiting, or constipation that does not improve with medication; Fevers over 101.5, chills, sweats; Drainage or bleeding from the wound; Foul odor; Spreading areas of redness; Any other concerns Pending Studies at Discharge: No Stand-Alone Forms: [facility] Medications and DC Order Prescriptions: New oxycodone 5 mg tablet 5 mg PO Q4H MDD Initial prescription Qty: 30 RF: 0 diclofenac sodium 75 mg tablet,delayed release (DR/EC) 75 mg PO BID 30 Days Qty: 60 RF: 1 Continued allopurinol 100 mg tablet 100 mg PO BID Qty: 180 RF: 3 simvastatin 20 mg tablet 20 mg PO QPM Qty: 90 RF: 3 metoprolol tartrate 50 mg tablet 50 mg PO BID Qty: 180 RF: 3 pantoprazole [Protonix] 40 mg tablet,delayed release (DR/EC) 40 mg PO QAM Qty: 90 RF: 3 tamsulosin 0.4 mg capsule 0.4 mg PO BID 30 Days Qty: 60 RF: 2 apixaban 5 mg tablet 5 mg PO BID Qty: 180 RF: 3 prednisone 5 mg tablet 5 mg PO QAM Qty: 90 RF: 1 mecobalamin (vitamin B12) 5,000 mcg tablet,disintegrating 5,000 mcg PO QAM RF: 0 diclofenac sodium 1 % Gel 2 g TOPICAL UD PRN (Reason: Pain) RF: 0 gabapentin 600 mg tablet 600 mg PO .COMPLEX RF: 0 hydrochlorothiazide 25 mg tablet 25 mg PO QAM RF: 0 finasteride 5 mg tablet 5 mg PO QPM RF: 0 cholecalciferol (vitamin D3) 50 mcg (2,000 unit) capsule 50 mcg PO QAM RF: 0 Myrbetriq 50 mg tablet extended release 24 hr 50 mg PO QPM RF: 0 Discharge Orders: Discharge Order (Routine); Ordered 12/31/20 Ordered By: Twin Pastor Admission Data Admit Date/Time: 12/30/20 09:18 Attending Provider: Surinder Siomn Admit Provider: Surinder Simon Primary Care Provider: Melinda Howard V.
--- NOTE | 2020-12-31 10:49 | Anesthesiology Progress Note ---
Date of Service December 31, 2020 Anesthesia Post Procedure Vital Signs Vital Signs: Temp Pulse Pulse Resp BP Pulse Ox 12/31/20 08:46 65 125/76 12/31/20 07:32 36.5 C 52 L 16 131/80 97 12/31/20 04:00 36.9 C 56 L 16 123/72 99 12/30/20 22:40 36.9 C 58 L 16 126/70 97 12/30/20 18:56 36.9 C 60 16 166/76 H 97 12/30/20 18:18 63 164/86 H 12/30/20 16:31 58 L 154/73 H 12/30/20 15:36 36.5 C 58 L 18 161/85 H 98 12/30/20 13:12 36.3 C L 52 L 16 150/77 H 100 12/30/20 12:07 36.3 C L 52 L 16 171/88 H 100 12/30/20 11:07 36.3 C L 51 L 16 160/71 H 94 Notes Mental Status: alert / awake / arousable and participated in evaluation Patient Amnestic to Procedure: Yes Nausea / Vomiting: adequately controlled Pain: adequately controlled Airway Patency, RR, SpO2: stable & adequate BP & HR: stable & adequate Hydration State: stable & adequate Neuraxial Anesthesia: was administered and sensory block resolved Anesthetic Complications: no major complications apparent and Pt Satisfied with anesthetic care
== END 2020-12-31 15:03 | disposition home health service (06) ==
LOC: ASU 05:02 → 3E 05:02

== ENCOUNTER 2021-02-26 20:44 | Observation (INO) ==
[2021-02-26] MEDS ORDERED: SODIUM CHLORIDE 0.9% 1000ML 1,000 ML IV SCH (21:30)
[2021-02-26 21:45] LABS: Basophils # (auto) 0.02 K/uL (0-0.2); Basophils % (auto) 0.4 %; Hematocrit (blood only) 35.4 % (42-52); Hemoglobin 11.8 g/dL (14.0-18.0); Immature Granulocytes # (auto) 0.02 K/uL (0.00-0.02); Immature Granulocytes % (auto) 0.4 %; Lymphocytes # (auto) 1.35 K/uL (1.2-3.4); Lymphocytes % (auto) 27.4 %; Mean Corpuscular Hemoglobin 33.1 pg (25-34); Mean Corpuscular Hgb Conc 33.3 g/dL (32-36); Mean Corpuscular Volume 99.4 fL (80-100); Mean Platelet Volume 9.3 fL (7.4-10.4); Monocytes # (auto) 0.47 K/uL (0.11-0.59); Monocytes % (auto) 9.5 %; Neutrophils # (auto) 2.97 K/uL (1.4-6.5); Neutrophils % (auto) 60.3 %; Platelet Count 267 K/uL (130-400); RDW Coefficient of Variation 13.9 % (11.5-14.5); RDW Standard Deviation 49.9 fL (36.4-46.3); Red Blood Count 3.56 M/uL (4.7-6.1); White Blood Count 4.93 K/uL (4.8-10.8)
[2021-02-26] MEDS: HYDROmorphone INJ 0.5 MG/0.5 ML SYR IV PRN ×2 (21:47→22:35)
[2021-02-26 22:09] LABS: Partial Thromboplastin Ratio 1.2; Partial Thromboplastin Time 31.1 Seconds (21.0-31.0); Prothrombin Time 10.5 Seconds (9.0-12.0)
[2021-02-26 22:12] LABS: Albumin Level 3.3 gm/dl (3.4-5.0); Calcium 9.4 mg/dl (8.5-10.1); Creatinine Clr Calc Pharmacy 61.4 ml/min; Est GFR (African American) 76.8 ml/min; Est GFR (Non-African American) 66.3 ml/min
[2021-02-26 22:15] LABS: Bilirubin,Total 0.4 mg/dl (0.2-1); Globulin 3.3 gm/dl (2.5-4.0); Total Protein 6.6 gm/dl (6.4-8.2)
--- NOTE | 2021-02-26 22:55 | Emergency Department Note ---
Impression & Plan Closed dislocation of right hip, Skin tear of left elbow without complication, Fall ED Provider Note INFORMANT: Patient ED PROVIDER(S): Chidi Freire MD CHIEF COMPLAINT: Hip pain PLAN: Disposition: Admitted Condition: Good Outpatient prescription management: none Referral: None MEDICAL DECISION MAKING: The patient presented to the emergency department because of a minor fall and r ight hip pain. He just had his hip replaced and had a subsequent dislocation and reduction. He had a small skin tear on the left elbow. I did repair this as noted below. He had unremarkable labs. The patient's right hip x-ray reveals a dislocation of his prosthesis but no evidence of periprosthetic fracture. Head CT is negative. Unfortunately the patient has consumed alcohol and ate about 2.5 hours prior to arrival. I did consult with Dr. Pawan Burrell of orthopedics and the patient will need to be admitted to the hospital as he is not cleared to receive sedation or anesthesia. Dr. Pawan Burrell asked for the hospitalist service to admit the patient. I did consult with Dr. Yolanda Myers in of the hospitalist service. The patient was evaluated in the ER and admitted for further management. Triage Nursing notes reviewed and agree them. Vital Signs: reviewed and remarkable for no significant abnormalities Differential diagnosis: Fracture, dislocation, neurovascular compromise, compartment syndrome, soft tissue injury, as well as other pathologies. Diagnostics interpreted by me: Cardiac Monitoring: none Imaging studies: X-ray imaging of the right hip reveals a prosthetic dislocation without fracture. Head CT: A noncontrast CT scan of the head was performed and was negative for tumor, fracture, intracranial hemorrhage, or other acute pathology. HPI: The patient is a 80 year old male who presents to the Emergency Room with complaints of right hip pain. This started a little over an hour ago and is from a fall. The patient also notes the following associated symptoms, a skin tear in the left elbow. The patient has taken no medication for relieving factors. Current pain is rated as 3/10. Patient recently had a right hip replacement and subsequent dislocation and reduction. The patient did eat d inner about 2.5 hours ago. He also had several alcoholic beverages. Patient has been in good health recently for him and his . Pt denies LOC, headache, fevers, chills, diaphoresis, visual changes, neck pain, chest pain, breathing difficulties, nausea, vomiting, abdominal pain, back pain, melena, hematochezia, urinary symptoms, numbness, weakness, lymphadenopathy, rash, or other complaints. ROS: See above HPI for pertinent positives & negatives. A total of 10 systems reviewed and were otherwise negative. PAST MEDICAL HISTORY:See Below , A. fib, anticoagulation PAST SURGICAL HISTORY:See Below, FAMILY HISTORY:See Below SOCIAL HISTORY:See Below, HOME MEDICATIONS:See Below ALLERGIES:See Below VITALS:See Below PHYSICAL EXAMINATION: GENERAL: Awake, alert, well-appearing, in no distress HENT: Normocephalic, atraumatic. Oropharynx unremarkable. EYES: Normal conjunctiva. Sclera non-icteric. NECK: Inspection normal. Non-tender. Supple. No nuchal rigidity. FROM. No masses. RESPIRATORY: Clear to auscultation. No wheezes. No rales. Normal respiratory effort. CARDIAC: Normal rate. Normal rhythm. No murmurs. No rubs. Extremities warm and well perfused. Pulses equal. No JVD. GI: Soft, non-distended. No tenderness to palpation. No rebound or guarding. No masses. RECTAL: Deferred. MUSCULOSKELETAL: Upper extremities are atraumatic except for a tiny abrasion and skin tear noted on the left elbow. Chest examination reveals no tenderness. The back is symmetrical on inspection without obvious abnormality. There is no CVA tenderness to palpation. No joint edema. Examination of the right lower extremity reveals mild external rotation and shortening. There is some mild tenderness at the right hip. Remainder of the extremity is atraumatic and neurovascular intact. Left lower extremity is atraumatic. LOWER EXTREMITIES: Calves are equal size bilaterally and non-tender. No edema. No discoloration. NEURO: Normal sensorium. No sensory or motor deficits noted. SKIN: No rash or jaundice noted. TISSUE ADHESIVE REPAIR: Location: Left elbow Total length: 3 cm Complexity: Simple Verbal consent was obtained after the risks and benefits were explained. At this time, the risks of the procedure are less than the risks of NOT performing the procedure. Copious irrigation was performed using saline and gauze. The wound was explored for foreign bodies and none found. Debridement was not performed. The wound edges were approximated using gentle pressure and the tissue adhesive was applied in the standard fashion. Hemostasis and excellent approximation was achieved. No complications and the patient tolerated the procedure well. Chidi Freire MD Past Med/Surg History Medical History Anemia Ascending aorta dilatation Per records Atrial flutter Dx 2-3 years ago - current eliquis/metoprolol - Follows w/ dr. downing BCC (basal cell carcinoma) s/p excision Bifascicular block RBBB + LAFB (chronic) Chronic steroid use For osteoarthritis per pt History of BPH Hypertension Neuropathy Osteoarthritis Sleep apnea CPAP Spinal stenosis of lumbar region with radiculopathy Surgical History H/O left inguinal hernia repair (01/15/20) Left Direct Inguinal Hernia Repair with Mesh, Excision of lipoma (01/15/20): LMA#5 at [facility] History of arthroscopy of knee + lateral meniscectomy (Lx2, Rx1) History of arthroscopy of left shoulder 08/27/2018 ([facility] [place]) History of colonoscopy History of sinus surgery History of tonsillectomy History of total knee replacement R/L S/P epidural steroid injection x2 Status post Mohs micrographic surgery for basal cell carcinoma (BCC) Facial (2017) Status post trigger finger release Right hand (3rd digit) Family History Father Myocardial infarction Stroke Mother Alzheimer disease Brother Cancer Knee injury Denies family history of Ovarian cancer Prostate cancer Breast cancer Lung cancer Colorectal cancer Social History Smoking Status: Former smoker Age Started Using Tobacco: 17; Age Quit Using Tobacco: 27; packs per day: 1; Years Smoked: 10; Cigarettes Per Day: 20; Number of Years Since Quit: 40; Second Hand Exposure: No; Do You Dip or Chew Tobacco: No; Hx Alcohol Use: Yes Alcohol type: beer, wine and hard liquor Hx Substance Use: No Preferred Language: Czech Communication Ability: Effective Visual Impairment: No Limitations Hearing Ability: Normal Intensive Care Medicine Specialist Required: No Beliefs That Will Affect Care: None marital status: Current Living Situation: Spouse current occupational status: retired Other Information That Helps Us Care for You: No Feels Safe at Home: Yes Safety Concerns: Feels Safe At This Time Childhood Exposure to Second-Hand Smoke: No Seatbelt Use: always Assistive Devices: None Allergies Allergies Allergy/AdvReac Type Severity Reaction Status Date / Time No Known Allergies Allergy Verified 02/26/21 21:30 Home Meds Home Medications Medication Instructions Recorded Confirmed mecobalamin (vitamin B12) 5,000 5,000 mcg PO QAM tab 06/16/19 02/26/21 mcg disintegrating tablet cholecalciferol (vitamin D3) 50 50 mcg PO QAM 12/15/20 02/26/21 mcg (2,000 unit) capsule finasteride 5 mg tablet 5 mg PO QPM 12/15/20 02/26/21 gabapentin 600 mg tablet 600 mg PO .COMPLEX tab 12/17/20 02/26/21 oxycodone 5 mg tablet 5 mg PO Q4H PRN 01/19/21 02/26/21 Previous Rx's Medication Instructions Recorded allopurinol 100 mg tablet 100 mg PO BID #180 tab 10/11/20 simvastatin 20 mg tablet 20 mg PO QPM #90 tab 11/01/20 apixaban 5 mg tablet 5 mg PO BID #180 tab 11/15/20 prednisone 5 mg tablet 5 mg PO QAM #90 tab 11/15/20 eszopiclone 2 mg tablet 2 mg PO HS PRN #20 tab 01/25/21 hydrochlorothiazide 25 mg tablet 25 mg PO QAM #90 tab 02/07/21 tamsulosin 0.4 mg capsule 0.4 mg PO BID 30 Days #90 cap 02/07/21 pantoprazole 40 mg tablet,delayed 40 mg PO QAM #90 tab 02/21/21 release (Protonix) metoprolol tartrate 50 mg tablet 50 mg PO BID #180 tab 02/25/21 Results & Data (ED) Vital Signs Vital Signs - 24 hr 02/26/21 20:47 02/26/21 20:48 02/26/21 21:55 Temperature 37.3 C Temperature Source Oral Pulse Rate 70 72 69 Pulse Rate from SpO2 Sensor 87 70 Respiratory Rate 20 12 17 Respiratory Effort / Characteristics Non-Labored Spontaneous Respiratory Depth Normal Respiratory Pattern Regular Blood Pressure 131/82 131/82 137/75 Blood Pressure Mean 98 98 95 Blood Pressure Position Lying Pulse Oximetry 97 94 96 Oxygen Delivery Method Room Air Sepsis Recent Fever Within 48 Hours No Sepsis New/Unexplained Change in Mental Status N/A Sepsis Action Taken by Nursing No Action Required 02/26/21 22:00 02/26/21 22:15 02/26/21 22:30 Temperature Temperature Source Pulse Rate 70 69 69 Pulse Rate from SpO2 Sensor 67 69 69 Respiratory Rate 16 15 18 Respiratory Effort / Characteristics Respiratory Depth Respiratory Pattern Blood Pressure 116/75 128/75 119/75 Blood Pressure Mean 88 92 89 Blood Pressure Position Pulse Oximetry 94 95 97 Oxygen Delivery Method Sepsis Recent Fever Within 48 Hours Sepsis New/Unexplained Change in Mental Status Sepsis Action Taken by Nursing Laboratory Data Result diagrams: 02/26/21 21:35 02/26/21 21:35 Lab Results 02/26/21 02/26/21 02/26/21 Range/Units 21:35 21:35 21:51 WBC 4.93 (4.8-10.8) K/uL RBC 3.56 L (4.7-6.1) M/uL Hgb 11.8 L (14.0-18.0) g/dL Hct 35.4 L (42-52) % MCV 99.4 (80-100) fL MCH 33.1 (25-34) pg MCHC 33.3 (32-36) g/dL RDW Std Deviation 49.9 H (36.4-46.3) fL RDW Coeff of Bautista 13.9 (11.5-14.5) % Plt Count 267 (130-400) K/uL MPV 9.3 (7.4-10.4) fL Immature Gran % (Auto) 0.4 % Neut % (Auto) 60.3 % Lymph % (Auto) 27.4 % Walton % (Auto) 9.5 % Eos % (Auto) 2.0 % Baso % (Auto) 0.4 % Neut # (Auto) 2.97 (1.4-6.5) K/uL Lymph # (Auto) 1.35 (1.2-3.4) K/uL Walton # (Auto) 0.47 (0.11-0.59) K/uL Eos # (Auto) 0.10 (0-0.5) K/uL Baso # (Auto) 0.02 (0-0.2) K/uL Immature Gran # (Auto) 0.02 (0.00-0.02) K/uL PT 10.5 (9.0-12.0) Seconds INR 1.0 (0.9-1.1) APTT 31.1 H (21.0-31.0) Seconds PTT Ratio 1.2 Sodium 139 (136-145) mmol/L Potassium 4.0 (3.5-5.1) mmol/L Chloride 106 (98-107) mmol/L Carbon Dioxide 24 (21-32) mmol/L Anion Gap 9.0 (3-11) BUN 21 H (7-18) mg/dl Creatinine 1.05 (0.6-1.4) mg/dl Est Cr Clr Drug Dosing 61.4 ml/min Est GFR ( Amer) 76.8 ml/min Est GFR (Non-Af Amer) 66.3 ml/min BUN/Creatinine Ratio 20.0 (10-20) Glucose 89 (70-99) mg/dl Calcium 9.4 (8.5-10.1) mg/dl Total Bilirubin 0.4 (0.2-1) mg/dl AST 20 (15-37) U/L ALT 17 (12-78) U/L Alkaline Phosphatase 89 (45-117) U/L Total Protein 6.6 (6.4-8.2) gm/dl Albumin 3.3 L (3.4-5.0) gm/dl Globulin 3.3 (2.5-4.0) gm/dl Albumin/Globulin Ratio 1.0 (0.9-2) COVID-19 Eval Order SARS-CoV-2 (PCR) (Negative) 02/26/21 02/26/21 Range/Units 21:55 21:55 WBC (4.8-10.8) K/uL RBC (4.7-6.1) M/uL Hgb (14.0-18.0) g/dL Hct (42-52) % MCV (80-100) fL MCH (25-34) pg MCHC (32-36) g/dL RDW Std Deviation (36.4-46.3) fL RDW Coeff of Bautista (11.5-14.5) % Plt Count (130-400) K/uL MPV (7.4-10.4) fL Immature Gran % (Auto) % Neut % (Auto) % Lymph % (Auto) % Walton % (Auto) % Eos % (Auto) % Baso % (Auto) % Neut # (Auto) (1.4-6.5) K/uL Lymph # (Auto) (1.2-3.4) K/uL Walton # (Auto) (0.11-0.59) K/uL Eos # (Auto) (0-0.5) K/uL Baso # (Auto) (0-0.2) K/uL Immature Gran # (Auto) (0.00-0.02) K/uL PT (9.0-12.0) Seconds INR (0.9-1.1) APTT (21.0-31.0) Seconds PTT Ratio Sodium (136-145) mmol/L Potassium (3.5-5.1) mmol/L Chloride (98-107) mmol/L Carbon Dioxide (21-32) mmol/L Anion Gap (3-11) BUN (7-18) mg/dl Creatinine (0.6-1.4) mg/dl Est Cr Clr Drug Dosing ml/min Est GFR ( Amer) ml/min Est GFR (Non-Af Amer) ml/min BUN/Creatinine Ratio (10-20) Glucose (70-99) mg/dl Calcium (8.5-10.1) mg/dl Total Bilirubin (0.2-1) mg/dl AST (15-37) U/L ALT (12-78) U/L Alkaline Phosphatase (45-117) U/L Total Protein (6.4-8.2) gm/dl Albumin (3.4-5.0) gm/dl Globulin (2.5-4.0) gm/dl Albumin/Globulin Ratio (0.9-2) COVID-19 Eval Order Covid19 at [facility] SARS-CoV-2 (PCR) NEGATIVE (Negative) Administered Medications Eszopiclone (Eszopiclone 1 Mg Tab) 2 mg PO HS PRN PRN Reason: sleep Stop: 03/29/21 00:04 Last Admin: 02/27/21 00:33 Dose: 2 mg Documented by: [id number] Gabapentin (Gabapentin 600 Mg Tab) 1,200 mg PO QPM ED Stop: 03/29/21 00:09 Last Admin: 02/27/21 00:33 Dose: Not Given Documented by: [id number] Hydromorphone HCl (Hydromorphone Inj 0.5 Mg/0.5 Ml Syr) 0.25 mg IV Q20M PRN PRN Reason: Moderate Pain (Rating 3,4,5,6) Stop: 03/12/21 21:17 Last Admin: 02/26/21 22:35 Dose: 0.25 mg Documented by: [id number] Admin: 02/26/21 21:47 Dose: 0.25 mg Documented by: [id number] Sodium Chloride (Nss 1000ml) 1,000 mls @ 150 mls/hr IV .[id number] ED Stop: 02/27/21 04:09 Last Infusion: 02/27/21 00:00 Dose: 0 mls/hr Documented by: [id number] Admin: 02/26/21 21:48 Dose: 150 mls/hr Documented by: [id number] Discharge Plan Visit Data Chief Complaint: Fall Stated Complaint: FALL/HIP PAIN ED Provider: Chidi Freire Discharge Problem: Closed dislocation of right hip, Skin tear of left elbow without complication, Fall Patient Disposition: Admitted As Inpatient Discharge Instructions Interventions: ED Discharge Assessment Last Done: 02/26/21 23:40
--- NOTE | 2021-02-26 23:10 | History & Physical Report ---
Date of Service February 26, 2021 Assessment & Plan (1) Failure of right total hip arthroplasty with dislocation of hip: Plan: Chidi Weber is a 80-year-old male with past medical history significant for atrial fibrillation, hypertension, hyperlipidemia, prediabetes, insomnia, and s/p right ENEDELIA; who presented to the emergency room for concerns of right hip pain following a fall earlier this evening. Subluxation of right ENEDELIA: -S/p right total hip arthroplasty on 12/30 -ED provider discussed case with orthopedic surgeon wildland fire operations specialist: To be n.p.o. with exception of meds overnight for reduction in OR tomorrow -Orthopedic surgery consulted -Oxycodone 5 mg q4h for pain -Dilaudid as needed for severe pain Atrial fibrillation: -Rate controlled atrial fibrillation on Eliquis -Continue home regimen of metoprolol 50 mg BID, and Eliquis Hypertension: -Continue home regimen of hydrochlorothiazide 25 mg, and metoprolol 50 mg BID Hyperlipidemia: -Continue home regimen of simvastatin 20 mg nightly BPH: -Continue home regimen of finasteride and tamsulosin Insomnia: -Continue Lunesta 2 mg as needed Diet: NPO except meds CODE STATUS: Full code (2) S/P total hip arthroplasty: (3) Atrial fibrillation: (4) Hypertension: (5) Hyperlipidemia: (6) Insomnia: History of Present Illness Chief Complaint: Dislocated right ENEDELIA Primary Care Provider: Melinda Howard MD Chidi Weber is a 80-year-old male with past medical history significant for atrial fibrillation, hypertension, hyperlipidemia, prediabetes, insomnia, and s/p right ENEDELIA; who presented to the emergency room for concerns of right hip pain following a fall earlier this evening. Shortly after dinner, patient was walking within his house, and tripped over a pillow. Landing on his left side, but shortly thereafter noticing intense right hip pain. Did not have any syncope, no loss of consciousness, no headaches, fevers, chills, sweats, bowel o r bladder incontinence, decreased sensation of lower extremities, numbness, or tingling. In the ED, evaluation demonstrated dislocation of right ENEDELIA. Of note, this is the second time since replacement of his ENEDELIA in December that patient has had dislocation of prosthesis. Last time coming in mid January following an atraumatic dislocation while walking. It was deemed that given the time relationship of when patient most recently 8 and the proposed anesthetic effects that unfortunately could not be reduced tonight and therefore submitted for admission. Allergies Allergy/AdvReac Type Severity Reaction Status Date / Time No Known Allergies Allergy Verified 02/26/21 21:30 Home Medications Medication Instructions Recorded Confirmed Type mecobalamin (vitamin B12) 5,000 5,000 mcg PO QAM tab 06/16/19 02/26/21 History mcg disintegrating tablet allopurinol 100 mg tablet 100 mg PO BID #180 tab 10/11/20 02/26/21 Rx simvastatin 20 mg tablet 20 mg PO QPM #90 tab 11/01/20 02/26/21 Rx apixaban 5 mg tablet 5 mg PO BID #180 tab 11/15/20 02/26/21 Rx prednisone 5 mg tablet 5 mg PO QAM #90 tab 11/15/20 02/26/21 Rx cholecalciferol (vitamin D3) 50 50 mcg PO QAM 12/15/20 02/26/21 History mcg (2,000 unit) capsule finasteride 5 mg tablet 5 mg PO QPM 12/15/20 02/26/21 History gabapentin 600 mg tablet 600 mg PO .COMPLEX tab 12/17/20 02/26/21 History oxycodone 5 mg tablet 5 mg PO Q4H PRN 01/19/21 02/26/21 History eszopiclone 2 mg tablet 2 mg PO HS PRN #20 tab 01/25/21 02/26/21 Rx hydrochlorothiazide 25 mg tablet 25 mg PO QAM #90 tab 02/07/21 02/26/21 Rx tamsulosin 0.4 mg capsule 0.4 mg PO BID 30 Days #90 cap 02/07/21 02/26/21 Rx pantoprazole 40 mg tablet,delayed 40 mg PO QAM #90 tab 02/21/21 02/26/21 Rx release (Protonix) metoprolol tartrate 50 mg tablet 50 mg PO BID #180 tab 02/25/21 02/26/21 Rx Past Med/Surg History Medical History Anemia Ascending aorta dilatation Per records Atrial flutter Dx 2-3 years ago - current eliquis/metoprolol - Follows w/ dr. downing BCC (basal cell carcinoma) s/p excision Bifascicular block RBBB + LAFB (chronic) Chronic steroid use For osteoarthritis per pt History of BPH Hypertension Neuropathy Osteoarthritis Sleep apnea CPAP Spinal stenosis of lumbar region with radiculopathy Surgical History H/O left inguinal hernia repair (01/15/20) Left Direct Inguinal Hernia Repair with Mesh, Excision of lipoma (01/15/20): LMA#5 at [facility] History of arthroscopy of knee + lateral meniscectomy (Lx2, Rx1) [place] [place] of colonoscopy History of sinus surgery History of tonsillectomy History of total knee replacement R/L S/P epidural steroid injection x2 Status post Mohs micrographic surgery for basal cell carcinoma (BCC) Facial (2017) Status post trigger finger release Right hand (3rd digit) Family History Father Myocardial infarction Stroke Mother Alzheimer disease Brother Cancer Knee injury Denies family history of Ovarian cancer Prostate cancer Breast cancer Lung cancer Colorectal cancer Social History Smoking Status: Former smoker Age Started Using Tobacco: 17; Age Quit Using Tobacco: 27; packs per day: 1; Years Smoked: 10; Cigarettes Per Day: 20; Number of Years Since Quit: 40; Second Hand Exposure: No; Do You Dip or Chew Tobacco: No; Hx Alcohol Use: Yes Alcohol type: beer, wine and hard liquor Hx Substance Use: No Preferred Language: Yemeni Communication Ability: Effective Visual Impairment: No Limitations Hearing Ability: Normal Certified Adaptive Physical Educator Required: No Beliefs That Will Affect Care: None marital status: Current Living Situation: Spouse current occupational status: retired Other Information That Helps Us Care for You: No Feels Safe at Home: Yes Safety Concerns: Feels Safe At This Time Childhood Exposure to Second-Hand Smoke: No Seatbelt Use: always Assistive Devices: None Review of Systems Review of Systems: All systems reviewed & are unremarkable except as noted in HPI & below Physical Exam Constitutional: WD/WN, vitals as above Eyes: PERRL, conjunctivae normal, anicteric sclerae Respiratory: normal respiratory effort, lungs clear to auscultation Auscultation: no crackles, no rales, no rhonchi and no wheezes Cardiovascular: Rate/Rhythm: regular rate and regular rhythm Heart Sounds: no gallop, no murmur and no cardiac rub Vessels: normal peripheral pulses; no JVD Extremities: no edema Gastrointestinal (Abdomen): Inspection/Auscultation: normal bowel sounds; abdomen not distended Percussion/Palpation: abdomen soft; abdomen nontender and no guarding Skin: no rashes, warm and dry Neurologic: PERRL, EOMI, accommodation nl, no face palsy, no dysarthria Symmetric muscle strength of bilateral lower extremities of major muscle groups. Hip flexors not tested given radiologic demonstration of ENEDELIA subluxation. Psychiatric: Orientation: alert and oriented x 3 Results & Data Results & Data ([facility]) Vital Signs (Past 12 Hours) Vital Signs Temp Pulse Resp BP Pulse Ox 02/26/21 22:30 69 18 119/75 97 02/26/21 22:15 69 15 128/75 95 02/26/21 22:00 70 16 116/75 94 02/26/21 21:55 69 17 137/75 96 02/26/21 20:48 72 12 131/82 94 02/26/21 20:47 37.3 C 70 20 131/82 97 Laboratory Results 02/26/21 02/26/21 02/26/21 Range/Units 21:55 21:55 21:51 WBC (4.8-10.8) K/uL RBC (4.7-6.1) M/uL Hgb (14.0-18.0) g/dL Hct (42-52) % MCV (80-100) fL MCH (25-34) pg MCHC (32-36) g/dL RDW Std Deviation (36.4-46.3) fL RDW Coeff of Bautista (11.5-14.5) % Plt Count (130-400) K/uL MPV (7.4-10.4) fL Immature Gran % (Auto) % Neut % (Auto) % Lymph % (Auto) % [place] % (Auto) % Eos % (Auto) % Baso % (Auto) % Neut # (Auto) (1.4-6.5) K/uL Lymph # (Auto) (1.2-3.4) K/uL [place] # (Auto) (0.11-0.59) K/uL Eos # (Auto) (0-0.5) K/uL Baso # (Auto) (0-0.2) K/uL Immature Gran # (Auto) (0.00-0.02) K/uL PT 10.5 (9.0-12.0) Seconds INR 1.0 (0.9-1.1) APTT 31.1 H (21.0-31.0) Seconds PTT Ratio 1.2 Sodium (136-145) mmol/L Potassium (3.5-5.1) mmol/L Chloride (98-107) mmol/L Carbon Dioxide (21-32) mmol/L Anion Gap (3-11) BUN (7-18) mg/dl Creatinine (0.6-1.4) mg/dl Est Cr Clr Drug Dosing ml/min Est GFR ( Amer) ml/min Est GFR (Non-Af Amer) ml/min BUN/Creatinine Ratio (10-20) Glucose (70-99) mg/dl Calcium (8.5-10.1) mg/dl Total Bilirubin (0.2-1) mg/dl AST (15-37) U/L ALT (12-78) U/L Alkaline Phosphatase (45-117) U/L Total Protein (6.4-8.2) gm/dl Albumin (3.4-5.0) gm/dl Globulin (2.5-4.0) gm/dl Albumin/Globulin Ratio (0.9-2) COVID-19 Eval Order Covid19 at [facility] SARS-CoV-2 (PCR) Pending 02/26/21 02/26/21 Range/Units 21:35 21:35 WBC 4.93 (4.8-10.8) K/uL RBC 3.56 L (4.7-6.1) M/uL Hgb 11.8 L (14.0-18.0) g/dL Hct 35.4 L (42-52) % MCV 99.4 (80-100) fL MCH 33.1 (25-34) pg MCHC 33.3 (32-36) g/dL RDW Std Deviation 49.9 H (36.4-46.3) fL RDW Coeff of Bautista 13.9 (11.5-14.5) % Plt Count 267 (130-400) K/uL MPV 9.3 (7.4-10.4) fL Immature Gran % (Auto) 0.4 % Neut % (Auto) 60.3 % Lymph % (Auto) 27.4 % [place] % (Auto) 9.5 % Eos % (Auto) 2.0 % Baso % (Auto) 0.4 % Neut # (Auto) 2.97 (1.4-6.5) K/uL Lymph # (Auto) 1.35 (1.2-3.4) K/uL [place] # (Auto) 0.47 (0.11-0.59) K/uL Eos # (Auto) 0.10 (0-0.5) K/uL Baso # (Auto) 0.02 (0-0.2) K/uL Immature Gran # (Auto) 0.02 (0.00-0.02) K/uL PT (9.0-12.0) Seconds INR (0.9-1.1) APTT (21.0-31.0) Seconds PTT Ratio Sodium 139 (136-145) mmol/L Potassium 4.0 (3.5-5.1) mmol/L Chloride 106 (98-107) mmol/L Carbon Dioxide 24 (21-32) mmol/L Anion Gap 9.0 (3-11) BUN 21 H (7-18) mg/dl Creatinine 1.05 (0.6-1.4) mg/dl Est Cr Clr Drug Dosing 61.4 ml/min Est GFR ( Amer) 76.8 ml/min Est GFR (Non-Af Amer) 66.3 ml/min BUN/Creatinine Ratio 20.0 (10-20) Glucose 89 (70-99) mg/dl Calcium 9.4 (8.5-10.1) mg/dl Total Bilirubin 0.4 (0.2-1) mg/dl AST 20 (15-37) U/L ALT 17 (12-78) U/L Alkaline Phosphatase 89 (45-117) U/L Total Protein 6.6 (6.4-8.2) gm/dl Albumin 3.3 L (3.4-5.0) gm/dl Globulin 3.3 (2.5-4.0) gm/dl Albumin/Globulin Ratio 1.0 (0.9-2) COVID-19 Eval Order SARS-CoV-2 (PCR) Medications Administered Home Medication List Medication Instructions Recorded mecobalamin (vitamin B12) 5,000 5,000 mcg PO QAM tab 06/16/19 mcg disintegrating tablet allopurinol 100 mg tablet 100 mg PO BID #180 tab 10/11/20 simvastatin 20 mg tablet 20 mg PO QPM #90 tab 11/01/20 apixaban 5 mg tablet 5 mg PO BID #180 tab 11/15/20 prednisone 5 mg tablet 5 mg PO QAM #90 tab 11/15/20 cholecalciferol (vitamin D3) 50 50 mcg PO QAM 12/15/20 mcg (2,000 unit) capsule finasteride 5 mg tablet 5 mg PO QPM 12/15/20 gabapentin 600 mg tablet 600 mg PO .COMPLEX tab 12/17/20 oxycodone 5 mg tablet 5 mg PO Q4H PRN 01/19/21 eszopiclone 2 mg tablet 2 mg PO HS PRN #20 tab 01/25/21 hydrochlorothiazide 25 mg tablet 25 mg PO QAM #90 tab 02/07/21 tamsulosin 0.4 mg capsule 0.4 mg PO BID 30 Days #90 cap 02/07/21 pantoprazole 40 mg tablet,delayed 40 mg PO QAM #90 tab 02/21/21 release (Protonix) metoprolol tartrate 50 mg tablet 50 mg PO BID #180 tab 02/25/21 Supervising Physician Co-Signing Physician Notes Patient seen and examined, chart reviewed, case discussed with Dr. Rossi and I agree with his assessment and plan as above. In brief, patient is a 80yo male s/p right ENEDELIA presenting after a fall resulting in dislocation of right hip. Patient to have reduction in the OR tomorrow. Pain is well controlled. On exam he is afebrile, HD stable, NAD Skin - warm, dry, intact HEENT -NC/AT, PERRL, Neck supple Heart - +S1/S2, regular, no m/r/g Lungs - CTA Abd - +BS, soft, NT/ND Ext - NV intact, no bruising Labs and images reviewed. Significant for stable normochromic/normocytic anemia with Hgb=11.8 Hip XR with dislocation Assessment/Plan -Observation overnight as patient had recently eaten -Pain control -Reduction planned for OR in AM -Remainder of plan as above Resident Activity Tracking Resident Involvement: Resident Care Provided Care Provided: Adult [facility] Medicine
[2021-02-26] MEDS ORDERED: oxyCODONE HCL IR 5 MG TAB (IMMEDIATE RELEASE) PO PRN (23:58)
[2021-02-27] MEDS ORDERED: ESZOPICLONE 1 MG TAB PO PRN (00:05)
[2021-02-27] MEDS ORDERED: GABAPENTIN 600 MG TAB PO SCH ×2 (00:10→09:00)
--- NOTE | 2021-02-27 02:24 | Billing Data ---
Date of Service February 26, 2021 Coding Level of Care Code INT OBSERVATION CARE 50M LVL 2
[2021-02-27] MEDS ORDERED: MoRPHine SULFATE 2 MG/ML CARP IV PRN (04:01)
--- NOTE | 2021-02-27 07:22 | XRay Report ---
XR hip RT 2V w pelvis CLINICAL HISTORY: fall COMPARISON: February 10, 2021 DISCUSSION: No definite acute fractures seen. Interval superior and posterior dislocation of the femoral component of prosthetic right hip joint is seen. Large amount of stool is seen within pelvic region which might represent fecal impaction. Vascular calcifications are seen. L5 transitional vertebra is again seen. IMPRESSION: As above. ACT 112: Negative or not required by law. The above report was generated using voice recognition software. It may contain grammatical, syntax o r spelling errors. Electronically signed by: Divine Powell DO 02/27/2021 7:21 AM
--- NOTE | 2021-02-27 07:41 | Orthopedic Consultation ---
Date of Service February 27, 2021 Assessment & Plan (1) Closed dislocation of right hip: We did take this patient to the operating room this morning. We cannot do it last night and had ECT adjusted recently eaten. Will do a close reduction. It is highly likely he is going to probably need a constrained liner placed but I will leave that up to his primary care attending orthopedic surgeon Dr. Ga off. We will do a closed reduction today put him in a immobilizer and encouraged him to get back to wearing his brace until he sees Dr. Ga off. The rest events of close reduction were explained the patient to but not limited to DVT PE infection fracture leg length inequality nerve palsy need for further surgery. Patient understands and desires to proceed. Informed consent is obtained. (2) Skin tear of left elbow without complication: Patient is got a bandage on his left elbow. Should need more than this other than just a local wound care. History of Present Illness Reason for Consultation: . Dislocated right total hip arthroplasty. Requesting Physician: . Attending Physician: Yolanda Burrell DO . Patient 80-year-old gentleman with multiple medical comorbidities including atrial fibrillation, BPH, hypertension, spinal stenosis, sleep apnea who is now about 2 months out from a right total hip replacement. He sustained an initial first dislocation about 2 and half weeks out from surgery after a stumbling/fall episode. This was reduced by Dr. Garcia. He is done well since then. Is been wearing a brace postoperatively and just discontinued the brace couple days ago. He had eaten dinner this evening had a couple drinks and then stumbled and fell again. He dislocated his hip. Is brought to emergency room where we were consulted. He has been admitted by the medicine service indicated for close reduction. There is no signs of fracture. Patient did bump his left elbow is got a small skin tear with a bandage on it. Not really much in the way of pain. Allergies Allergy/AdvReac Type Severity Reaction Status Date / Time No Known Allergies Allergy Verified 02/26/21 21:30 Home Medications Medication Instructions Recorded Confirmed Type mecobalamin (vitamin B12) 5,000 5,000 mcg PO QAM tab 06/16/19 02/26/21 History mcg disintegrating tablet allopurinol 100 mg tablet 100 mg PO BID #180 tab 10/11/20 02/26/21 Rx simvastatin 20 mg tablet 20 mg PO QPM #90 tab 11/01/20 02/26/21 Rx apixaban 5 mg tablet 5 mg PO BID #180 tab 11/15/20 02/26/21 Rx prednisone 5 mg tablet 5 mg PO QAM #90 tab 11/15/20 02/26/21 Rx cholecalciferol (vitamin D3) 50 50 mcg PO QAM 12/15/20 02/26/21 History mcg (2,000 unit) capsule finasteride 5 mg tablet 5 mg PO QPM 12/15/20 02/26/21 History gabapentin 600 mg tablet 600 mg PO .COMPLEX tab 12/17/20 02/26/21 History oxycodone 5 mg tablet 5 mg PO Q4H PRN 01/19/21 02/26/21 History eszopiclone 2 mg tablet 2 mg PO HS PRN #20 tab 01/25/21 02/26/21 Rx hydrochlorothiazide 25 mg tablet 25 mg PO QAM #90 tab 02/07/21 02/26/21 Rx tamsulosin 0.4 mg capsule 0.4 mg PO BID 30 Days #90 cap 02/07/21 02/26/21 Rx pantoprazole 40 mg tablet,delayed 40 mg PO QAM #90 tab 02/21/21 02/26/21 Rx release (Protonix) metoprolol tartrate 50 mg tablet 50 mg PO BID #180 tab 02/25/21 02/26/21 Rx Past Med/Surg History Medical History Anemia Ascending aorta dilatation Per records Atrial flutter Dx 2-3 years ago - current eliquis/metoprolol - Follows w/ dr. downing BCC (basal cell carcinoma) s/p excision Bifascicular block RBBB + LAFB (chronic) Chronic steroid use For osteoarthritis per pt History of BPH Hypertension Neuropathy Osteoarthritis Sleep apnea CPAP Spinal stenosis of lumbar region with radiculopathy Surgical History H/O left inguinal hernia repair (01/15/20) Left Direct Inguinal Hernia Repair with Mesh, Excision of lipoma (01/15/20): LMA#5 at [facility], [place] History of arthroscopy of knee + lateral meniscectomy (Lx2, Rx1) History of arthroscopy of left shoulder 08/27/2018 [place] [place] History of colonoscopy History of sinus surgery History of tonsillectomy History of total knee replacement R/L S/P epidural steroid injection x2 Status post Mohs micrographic surgery for basal cell carcinoma (BCC) Facial (2017) Status post trigger finger release Right hand (3rd digit) Family History Father Myocardial infarction Stroke Mother Alzheimer disease Brother Cancer Knee injury Denies family history of Ovarian cancer Prostate cancer Breast cancer Lung cancer Colorectal cancer Social History Smoking Status: Former smoker Age Started Using Tobacco: 17; Age Quit Using Tobacco: 27; packs per day: 1; Years Smoked: 10; Cigarettes Per Day: 20; Number of Years Since Quit: 40; Second Hand Exposure: No; Do You Dip or Chew Tobacco: No; Hx Alcohol Use: Yes Alcohol type: beer, wine and hard liquor Hx Substance Use: No Preferred Language: Russian Communication Ability: Effective Visual Impairment: No Limitations Hearing Ability: Normal Chief Human Resources Officer Required: No Beliefs That Will Affect Care: None marital status: Current Living Situation: Spouse current occupational status: retired Other Information That Helps Us Care for You: No Feels Safe at Home: Yes Safety Concerns: Feels Safe At This Time Childhood Exposure to Second-Hand Smoke: No Seatbelt Use: always Assistive Devices: None Review of Systems All systems reviewed & are unremarkable except as noted in HPI & below. Physical Exam . Physical examination reveals a pleasant middle-aged male. He is lying in bed in no acute distress. He is awake alert and oriented. Examination of the right hip and leg reveals the leg to be slightly shortened. Really not much in the way of malrotation. Fairly minimal swelling. He can dorsiflex and plantarflex his toes appropriately. Is got marked pain with any type of hip motion. No knee effusion. He is neurologically intact. Examination of the left elbow reveals a small skin tear with a bandage on it. He is got full motion. He is neurologically intact. Results & Data Results & Data Laboratory Results . Diagnostic Findings . X-rays of the right hip reveal a right uncemented total hip arthroplasty with the dislocated hip. It is dislocated superior and posterior. No signs of fracture. Implants look to be well placed in an appropriate position. No signs of subsidence or loosening. PG Care Time/CCT Total # of Minutes Spent Total Time Spent with Patient: Total time spent is greater than 50% in coordination of care (as documented) at patient's floor/unit and/or counseling patient: Coding Level of Care Code 21855 Inpt Consult Level 4 Diagnoses Closed dislocation of right hip S73.004A Skin tear of left elbow without complication S51.012A
--- NOTE | 2021-02-27 07:44 | History & Physical Bridge Note ---
Date of Service February 27, 2021 History & Physical Bridge Note I have examined the patient, reviewed the History & Physical and in the interval since the performance of the History & Physical I have noted the following changes of clinical significance: no changes noted
[2021-02-27 07:50] LABS: Basophils # (auto) 0.02 K/uL (0-0.2); Basophils % (auto) 0.4 %; Eosinophils # (auto) 0.13 K/uL (0-0.5); Eosinophils % (auto) 2.8 %; Hematocrit (blood only) 34.4 % (42-52); Hemoglobin 11.5 g/dL (14.0-18.0); Immature Granulocytes # (auto) 0.01 K/uL (0.00-0.02); Immature Granulocytes % (auto) 0.2 %; Lymphocytes # (auto) 1.16 K/uL (1.2-3.4); Lymphocytes % (auto) 24.8 %; Mean Corpuscular Hemoglobin 33.3 pg (25-34); Mean Corpuscular Hgb Conc 33.4 g/dL (32-36); Mean Corpuscular Volume 99.7 fL (80-100); Mean Platelet Volume 9.7 fL (7.4-10.4); Monocytes # (auto) 0.52 K/uL (0.11-0.59); Monocytes % (auto) 11.1 %; Neutrophils # (auto) 2.84 K/uL (1.4-6.5); Neutrophils % (auto) 60.7 %; Platelet Count 257 K/uL (130-400); RDW Standard Deviation 50.8 fL (36.4-46.3); Red Blood Count 3.45 M/uL (4.7-6.1); White Blood Count 4.68 K/uL (4.8-10.8)
--- NOTE | 2021-02-27 08:29 | CT Scan Report ---
CT OF THE HEAD WITHOUT CONTRAST CLINICAL HISTORY: Fall. COMPARISON STUDY: Head CT October 17, 2015. CT DOSE: 614.27 mGy.cm TECHNIQUE: Helical axial images of the head were obtained without IV contrast. Automated exposure con trol was utilized for the study. A dose lowering technique was utilized adhering to the principles o f ALARA. FINDINGS: No acute intracranial hemorrhage, midline shift or mass effect is present. The ventricular system is stable. White matter hypodensity suggests small vessel disease. The basal cisterns are jain nt. No extra-axial collections are present. There are no findings to suggest acute dural sinus thromb osis or acute territorial infarct. There is no acute calvarial fracture. Postoperative findings withi n the sinuses are present. IMPRESSION: 1. No acute intracranial findings. 2. No calvarial fracture. ACT 112: Negative or not required by law. Electronically signed by: Neftaly Monzon M.D. 02/27/2021 8:28 AM
[2021-02-27] MEDS ORDERED: APIXABAN 5 MG TABLET PO SCH (09:00)
[2021-02-27] MEDS ORDERED: predniSONE 5 MG TAB PO SCH (09:00)
[2021-02-27] MEDS ORDERED: allopurinoL 100 MG TAB PO SCH (09:00)
[2021-02-27] MEDS ORDERED: TAMSULOSIN HCL 0.4 MG CAP PO SCH (09:00)
[2021-02-27] MEDS ORDERED: METOPROLOL TARTRATE 50 MG TAB PO SCH (09:00)
[2021-02-27] MEDS ORDERED: hydroCHLOROthiazide 25 MG TAB PO SCH (09:00)
[2021-02-27] MEDS ORDERED: PANTOprazole 40 MG TAB PO SCH (09:00)
--- NOTE | 2021-02-27 09:40 | Anesthesiology Consultation ---
Date of Service February 27, 2021 Assessment & Plan (1) Encounter for pre-operative examination: Chart Review Chart Review: Acceptable Risk for Surgery and Patient NOT seen in Pre Admission Testing Consults Requested none ASA ASA3 Proposed Anesthesia Anesthesia Type: General Risk / Benefits Reviewed With: PT / POA / Parent / Guardian, Accepts Plan and In formed Consent Obtained History Surgery Operation Date: 02/27/21 09:00 Proposed Procedures p Closed Reduction Right Hip(Right) - Jacob Burrell MD Height/Weight Height: 5 ft 9 in Weight: 89.3 kg Allergies Allergy/AdvReac Type Severity Reaction Status Date / Time No Known Allergies Allergy Verified 02/26/21 21:30 Medications Home Medications Medication Instructions Recorded Confirmed Last Taken mecobalamin (vitamin B12) 5,000 5,000 mcg PO QAM tab 06/16/19 02/26/21 02/26/21 mcg disintegrating tablet allopurinol 100 mg tablet 100 mg PO BID #180 tab 10/11/20 02/26/21 02/26/21 08:00 simvastatin 20 mg tablet 20 mg PO QPM #90 tab 11/01/20 02/26/21 02/25/21 apixaban 5 mg tablet 5 mg PO BID #180 tab 11/15/20 02/26/21 02/26/21 08:00 prednisone 5 mg tablet 5 mg PO QAM #90 tab 11/15/20 02/26/21 02/26/21 cholecalciferol (vitamin D3) 50 50 mcg PO QAM 12/15/20 02/26/21 02/26/21 mcg (2,000 unit) capsule finasteride 5 mg tablet 5 mg PO QPM 12/15/20 02/26/21 02/25/21 gabapentin 600 mg tablet 600 mg PO .COMPLEX tab 12/17/20 02/26/21 02/26/21 08:00 oxycodone 5 mg tablet 5 mg PO Q4H PRN 01/19/21 02/26/21 Unknown eszopiclone 2 mg tablet 2 mg PO HS PRN #20 tab 01/25/21 02/26/21 Unknown hydrochlorothiazide 25 mg tablet 25 mg PO QAM #90 tab 02/07/21 02/26/21 02/26/21 tamsulosin 0.4 mg capsule 0.4 mg PO BID 30 Days #90 cap 02/07/21 02/26/21 02/26/21 08:00 pantoprazole 40 mg tablet,delayed 40 mg PO QAM #90 tab 02/21/21 02/26/21 02/26/21 release (Protonix) metoprolol tartrate 50 mg tablet 50 mg PO BID #180 tab 02/25/21 02/26/21 02/26/21 08:00 Active Medications Generic Name Dose Route Start Last Admin Trade Name Freq PRN Reason Stop Dose Admin Eszopiclone 2 mg 02/27/21 00:05 02/27/21 00:33 Eszopiclone 1 Mg Tab PO 03/29/21 00:04 2 mg HS PRN Administration sleep Gabapentin 1,200 mg 02/27/21 00:10 02/27/21 00:33 Gabapentin 600 Mg Tab PO 03/29/21 00:09 Not Given QPM ED Morphine Sulfate 1 mg 02/27/21 04:01 02/27/21 04:28 Morphine Sulfate 2 Mg/Ml Carp IV 03/13/21 04:00 1 mg Q4H PRN Administration Pain NPO Date Last Intake of Fluids: 02/26/21 Time Last Intake of Fluids: 20:00 Date Last Intake of Solids: 02/26/21 Time Last Intake of Solids: 20:00 Past Medical History Medical History Anemia Ascending aorta dilatation Per records Atrial flutter Dx 2-3 years ago - current eliquis/metoprolol - Follows w/ dr. downing BCC (basal cell carcinoma) s/p excision Bifascicular block RBBB + LAFB (chronic) Chronic steroid use For osteoarthritis per pt History of BPH Hypertension Neuropathy Osteoarthritis Sleep apnea CPAP Spinal stenosis of lumbar region with radiculopathy Past Family History Family History Father Myocardial infarction Stroke Mother Alzheimer disease Brother Cancer Knee injury Denies family history of Ovarian cancer Prostate cancer Breast cancer Lung cancer Colorectal cancer Past Surgical History Surgical History H/O left inguinal hernia repair (01/15/20) Left Direct Inguinal Hernia Repair with Mesh, Excision of lipoma (01/15/20): LMA#5 at [facility] History of arthroscopy of knee + lateral meniscectomy (Lx2, Rx1) History of arthroscopy of left shoulder 08/27/2018 ([facility] [place]) History of colonoscopy History of sinus surgery History of tonsillectomy History of total knee replacement R/L S/P epidural steroid injection x2 Status post Mohs micrographic surgery for basal cell carcinoma (BCC) Facial (2017) Status post trigger finger release Right hand (3rd digit) Social History Smoking Status: Former smoker tobacco type: cigarettes Smoking cigarettes per day: 20 Do You Dip or Chew Tobacco: No Hx Alcohol Use: Yes Alcohol type: beer, wine and hard liquor alcohol intake frequency: 0-2 drinks per day Hx Substance Use: No substance use type: does not use Physical Exam Vital Signs Last Vital Signs Temp 36.4 C L 02/27/21 07:06 Pulse 64 02/27/21 07:06 Resp 18 02/27/21 07:06 BP 126/71 02/27/21 07:06 Pulse Ox 97 02/27/21 07:06 ENMT Mouth: no TMJ abnormality Thyromental Distance: > or= 3.5 Finger Breadths Mallampati Class: II Neck normal visual inspection Respiratory normal respiratory effort Auscultation: lungs clear to auscultation bilaterally Cardiovascular Rate/Rhythm: + abnormal rate and + abnormal rhythm Musculoskeletal Spine: no pain with cervical ROM Neurologic moves all extremities Psychiatric Orientation: alert and oriented x 3 Testing Laboratory Results 02/27/21 07:11 02/26/21 21:35 PT 10.5 Seconds (9.0-12.0) 02/26/21 21:51 INR 1.0 (0.9-1.1) 02/26/21 21:51 APTT 31.1 Seconds (21.0-31.0) H 02/26/21 21:51 Electrocardiogram Date: 12/17/20 Findings: + RBBB Alflutter, rate 62, left anterior fascicle block Echocardiogram Date: 06/09/19 EF: 55-60 LV Function: normal Other Findings: + atrial enlargement (severe left atrial dilation, moderate right atrial dilation) Valvular Disease: + MR (moderate) pulmonary HTN RVSP 46, atrial flutter Other Testing CT OF THE HEAD WITHOUT CONTRAST CLINICAL HISTORY: Fall. COMPARISON STUDY: Head CT October 17, 2015. CT DOSE: 614.27 mGy.cm TECHNIQUE: Helical axial images of the head were obtained without IV contrast. Automated exposure control was utilized for the study. A dose lowering techniqu e was utilized adhering to the principles of ALARA. FINDINGS: No acute intracranial hemorrhage, midline shift or mass effect is present. The ventricular system is stable. White matter hypodensity suggests small vessel disease. The basal cisterns are patent. No extra-axial collections are present. There are no findings to suggest acute dural sinus thrombosis or acute territorial infarct. There is no acute calvarial fracture. Postoperative findings within the sinuses are present. IMPRESSION: 1. No acute intracranial findings. 2. No calvarial fracture. ACT 112: Negative or not required by law. Electronically signed by: Neftaly Monzon M.D. 02/27/2021 8:28 AM Dictated: 02/27/2125Transcribed: 02/27/21 0825
[2021-02-27] MEDS ORDERED: LABETALOL HCL IV 5 MG/ML 20ML IV PRN (09:46)
[2021-02-27] MEDS ORDERED: ONDANSETRON INJ 2 MG/ML 2 ML VIAL IV PRN (09:46)
[2021-02-27] MEDS ORDERED: HYDROmorphone INJ 1 MG/ML SYRINGE IV PRN (09:46)
[2021-02-27] MEDS ORDERED: PHENYLEPHRINE 100MCG/ML 5ML SYR IV PRN (09:46)
[2021-02-27] MEDS ORDERED: ATROPINE SULFATE 0.1 MG/ML 10ML SYR IV PRN (09:46)
[2021-02-27] MEDS ORDERED: MEPERIDINE HCL 25 MG/ML CARP/VIAL IV PRN (09:46)
[2021-02-27] MEDS ORDERED: fentaNYL citrate 100 MCG/2 ML VIAL IV PRN (09:46)
[2021-02-27] MEDS ORDERED: ePHEDrine sulfate 50 MG/ML AMP IV PRN (09:46)
[2021-02-27] MEDS ORDERED: LIDOCAINE 2% 2 ML VIAL/AMP(20MG/ML) INFIL ONE (09:53)
[2021-02-27] MEDS ORDERED: ONDANSETRON INJ 2 MG/ML 2 ML VIAL ONE (09:53)
[2021-02-27] MEDS ORDERED: PROPOFOL IV EMULSION 10 MG/ML 20 ML VIAL IV ONE ×2 (09:53→10:13)
[2021-02-27] MEDS ORDERED: fentaNYL citrate 100 MCG/2 ML VIAL ONE (09:53)
[2021-02-27] MEDS ORDERED: SUCCINYLCHOLINE CHLORIDE 20 MG/ML 10 ML VIAL IV ONE (10:13)
--- NOTE | 2021-02-27 10:37 | Operative Report ---
Post Operative Report Pre & Post Diagnosis Operation Date: 02/27/21 09:00 Pre-Op Diagnosis: Closed dislocation of right total hip replacement Post-Op Diagnosis: Closed dislocation of right total hip replacement I identified the patient and participated in the time-out.: Yes Procedure Operation Date: 02/27/21 09:00 Actual Procedures p Closed Reduction Right hip replacement (Right) - Jacob Burrell MD Surgeon Jacob Burrell MD Shovel Handle Assembler CATINA Zacarias Estimated Blood Loss 0 Findings Consistent with Post-Op Diagnosis Specimens None Anesthesia Type General Complications none Disposition Accompanied Patient To Recovery: No Indications Patient is an 80-year-old gentleman is now about 2 months out from a right total hip replacement. He did sustain a postoperative dislocation about 2-1/2 weeks postop from a stumbling episode. He had another episode yesterday where he lost his balance his leg gave out and fell off. He had acute onset of pain. Is brought to emergency room where x-rays were dislocated total hip. U nfortunately, he had eaten shortly before he arrived and it is late in the evening and therefore we could not adequately sedate him for reduction at that time. He is now indicated for close reduction. Components are all appropriately positioned. Description of Procedure Patient was taken to the operating, identified, placed on the operating table supine position but all contact areas were properly padded. A general laryngeal mask anesthetic was implemented by the anesthesia team. We did give him some paralysis. I applied some longitudinal traction of flexion the hip and internally rotated. After several attempts we were able to reduce the hip without significant difficulty. The reduction went well. There is no signs of fracture. Some post reduction films were obtained. The patient was then placed back on the transport bed, a knee immobilizer applied. Was brought out of general anesthesia and transferred to the recovery room in stable condition. Patient tolerated procedure well and there were no complications. Derick Zacarias, my physician operations manager assistant, was present for the entire procedure. His assistance was required for proper patient transfer, patient immobilization and countertraction during reduction, placement of the knee immobilizer. I attest to the content of the Intraoperative Record and any orders documented therein. Any exceptions are noted below.
--- NOTE | 2021-02-27 11:23 | Anesthesiology Progress Note ---
Date of Service February 27, 2021 Anesthesia Post Procedure Vital Signs Vital Signs: Temp Pulse Pulse Resp BP BP BP 02/27/21 11:00 36.5 C 78 16 129/73 02/27/21 10:50 78 16 129/73 02/27/21 10:40 76 16 111/73 02/27/21 10:32 36.5 C 84 16 115/72 02/27/21 07:06 36.4 C L 64 18 126/71 02/26/21 23:45 36.3 C L 70 16 150/86 H 02/26/21 23:40 71 18 122/84 02/26/21 22:30 69 18 119/75 02/26/21 22:15 69 15 128/75 02/26/21 22:00 70 16 116/75 02/26/21 21:55 69 17 137/75 02/26/21 20:48 72 12 131/82 02/26/21 20:47 37.3 C 70 20 131/82 Pulse Ox 02/27/21 11:00 95 02/27/21 10:50 100 02/27/21 10:40 100 02/27/21 10:32 97 02/27/21 07:06 97 02/26/21 23:45 97 02/26/21 23:40 97 02/26/21 22:30 97 02/26/21 22:15 95 02/26/21 22:00 94 02/26/21 21:55 96 02/26/21 20:48 94 02/26/21 20:47 97 Pain Intensity Right Hip: Pain Intensity: 2 Transfer of Care Handoff Completed per policy Notes Mental Status: alert / awake / arousable Patient Amnestic to Procedure: Yes Nausea / Vomiting: adequately controlled Pain: adequately controlled Airway Patency, RR, SpO2: stable & adequate BP & HR: stable & adequate Hydration State: stable & adequate Anesthetic Complications: no major complications apparent and Pt Satisfied with anesthetic care
[2021-02-27 12:17] VITALS: O2SAT 95
[2021-02-27 13:02] VITALS: PULSE 90; TEMP 97.9
--- NOTE | 2021-02-27 13:02 | Fluoroscopy Report ---
FL hip RT 2-3V CLINICAL HISTORY: RT CLOSED REDUCTION HIP COMPARISON STUDY: Pelvis radiograph February 26, 2021. FLUOROSCOPY TIME: 32 seconds. FLUOROSCOPIC IMAGES: 3 FINDINGS: Fluoroscopy was provided during closed reduction of the right hip arthroplasty. Alignment a ppears anatomic. No fracture is identified by fluoroscopy. There is an acetabular screw. IMPRESSION: Fluoroscopy provided during right hip closed reduction. ACT 112: Negative or not required by law. Electronically signed by: Neftaly Monzon M.D. 02/27/2021 1:00 PM
--- NOTE | 2021-02-27 13:03 | Discharge Summary ---
Date of Service February 27, 2021 Admission HPI Per Admitting Provider Chidi Weber is a 80-year-old male with past medical history significant for atrial fibrillation, hypertension, hyperlipidemia, prediabetes, insomnia, and s/p right ENEDELIA; who presented to the emergency room for concerns of right hip pain following a fall earlier this evening. Shortly after dinner, patient was walking within his house, and tripped over a pillow. Landing on his left side, but shortly thereafter noticing intense right hip pain. Did not have any syncope, no loss of consciousness, no headaches, fevers, chills, sweats, bowel or bladder incontinence, decreased sensation of lower extremities, numbness, or tingling. In the ED, evaluation demonstrated dislocation of right ENEDELIA. Of note, this is the second time since replacement of his ENEDELIA in December that patient has had dislocation of prosthesis. Last time coming in mid January following an atraumatic dislocation while walking. It was deemed that given the time relationship of when patient most recently 8 and the proposed anesthetic effects that unfor tunately could not be reduced tonight and therefore submitted for admission. Principal Diagnosis dislocated right total hip arthroplasty Discharge Exam Constitutional WD/WN, vitals as above Respiratory normal respiratory effort, lungs clear to auscultation Cardiovascular RRR, no murmur, no edema Musculoskeletal Chronica peripheral neuropathy in toes but otherwise NV intact right foot Discharge Data Allergies Allergy/AdvReac Type Severity Reaction Status Date / Time No Known Allergies Allergy Verified 02/26/21 21:30 Consultations 02/26/21 22:51 ED Decision to Admit Stat 02/26/21 23:07 Consult Orthopedic Surgery Routine Procedures Performed Operation Date: 02/27/21 09:00 Actual Procedures p Closed Reduction Right Hip(Right) - Jacob Burrell MD Ordered Studies 02/26/21 21:18 CT head/brain wo con Urgent IMPRESSION: 1. No acute intracranial findings. 2. No calvarial fracture. 02/27/21 FL hip RT 2-3V Routine Hospital Course (1) Failure of right total hip arthroplasty with dislocation of hip: Chidi Weber is an 80 year old male observed at [facility] from February 26-2020 after a mechanical fall causing a dislocation of his right total hip replacement. Closed reduction was performed by Dr Burrell on February 27, 2021. NV intact post operatively. No change to his medications required. Please see below for post operative orthopedic instructions. (2) S/P total hip arthroplasty: (3) Atrial fibrillation: (4) Hypertension: (5) Hyperlipidemia: (6) Insomnia: Total Time Total Time Spent Total Time Spent (In Minutes): 20 Discharge Plan Discharge Items Patient Disposition: Home - Self-Care Reason For Visit: DISLOCATED RIGHT ENEDELIA Discharge Diagnosis: dislocated right total hip arthroplasty Activity: As commented below Activity Comment: hip precautions. Use knee immobilizer as instructed Weightbearing: Full weightbearing Non-emergency contact: Surgeon Call non-emergency contact if: you have any medication questions and your pain is worsening Follow-up/Referrals: Melinda Howard MD [Primary Care Provider] - Diet: Regular Addtl Attending Provider Instructions: MEDICATIONS: * Resume previous medications unless instructed otherwise by your surgeon. * Always take pain medication on a full stomach or with food to avoid upset stomach. * Do not drink alcohol or drive while taking narcotics. * Tylenol may be taken if narcotic not needed. SPECIAL CARE INSTRUCTIONS: __ None __ Keep extremity elevated and iced x 48 hours; apply ice 20-30 minutes 8-10 times/day. May remove at night. __ Crutches __ May discard when able _x_ Brace/Post-op shoe _x_ 24 hrs/day __ Remove at night __ Dressing __ Maintain until seen in office, may shower with plastic over site __ Remove dressings in 24-48 hours and then may shower __ Cover incisions with band-aids after showering __ Do not remove steri-strips Call physician if chills or temperature rises above 102 degrees or pain unrelieved by prescribed pain medications. Office [phone] Follow up with [facility] orthopedics Pending Studies at Discharge: No Stand-Alone Forms: My Chat[employer], Smoking Cessation Medications and DC Order Prescriptions: New tramadol 50 mg tablet 50 mg PO Q4H PRN (Reason: pain) Qty: 15 RF: 0 Continued allopurinol 100 mg tablet 100 mg PO BID Qty: 180 RF: 3 simvastatin 20 mg tablet 20 mg PO QPM Qty: 90 RF: 3 apixaban 5 mg tablet 5 mg PO BID Qty: 180 RF: 3 prednisone 5 mg tablet 5 mg PO QAM Qty: 90 RF: 1 eszopiclone 2 mg tablet 2 mg PO HS PRN (Reason: sleep) Qty: 20 RF: 0 hydrochlorothiazide 25 mg tablet 25 mg PO QAM Qty: 90 RF: 1 tamsulosin 0.4 mg capsule 0.4 mg PO BID 30 Days Qty: 90 RF: 2 pantoprazole [Protonix] 40 mg tablet,delayed release (DR/EC) 40 mg PO QAM Qty: 90 RF: 3 metoprolol tartrate 50 mg tablet 50 mg PO BID Qty: 180 RF: 3 mecobalamin (vitamin B12) 5,000 mcg tablet,disintegrating 5,000 mcg PO QAM RF: 0 gabapentin 600 mg tablet 600 mg PO .COMPLEX RF: 0 finasteride 5 mg tablet 5 mg PO QPM RF: 0 cholecalciferol (vitamin D3) 50 mcg (2,000 unit) capsule 50 mcg PO QAM RF: 0 Discontinued oxycodone 5 mg tablet 5 mg PO Q4H PRN (Reason: Pain) RF: 0 Discharge Orders: Discharge Order (Routine); Ordered 02/27/21 Ordered By: Antelmo Zacarias Admission Data Admit Date/Time: 02/26/21 23:07 Attending Provider: Pierre Odonnell Admit Provider: Silviano Rossi Primary Care Provider: Melinda Howard V. Other Providers: Jacob Burrell ; Yolanda Burrell Other Interventions: Discharge Summary Assessment (RN) Last Done: 02/27/21 13:59 Coding Level of Care Code 73619 OBS Care - Discharge Diagnoses Failure of right total hip arthroplasty with dislocation of hip T84.020A S/P total hip arthroplasty Z96.649 Atrial fibrillation I48.91 Hypertension I10 Hyperlipidemia E78.5 Insomnia G47.00
[2021-02-27 14:00] VITALS: BP 150/86
[2021-02-27] MEDS ORDERED: SIMVASTATIN 20 MG TAB PO SCH (21:00)
[2021-02-27] MEDS ORDERED: FINASTERIDE 5 MG TAB PO SCH (21:00)
== END 2021-02-27 14:56 | disposition home or self-care (01) ==
LOC: 3N 20:44 → ED 20:44 → SUATTDRO 23:07 → 3N 23:40

== ENCOUNTER 2021-11-18 07:14 | Inpatient (IN) ==
--- NOTE | 2021-10-31 11:19 | PAT Medication Instructions ---
Medication Instructions Date of Service October 31, 2021 Home Medications Medication Instructions Recorded simvastatin 20 mg tablet 20 mg PO QPM #90 tab 11/01/20 apixaban 5 mg tablet 5 mg PO BID #180 tab 11/15/20 pantoprazole 40 mg tablet,delayed 40 mg PO QAM #90 tab 02/21/21 release (Protonix) metoprolol tartrate 50 mg tablet 50 mg PO BID #180 tab 02/25/21 tamsulosin 0.4 mg capsule 0.4 mg PO BID #180 cap 03/28/21 hydrochlorothiazide 25 mg tablet 25 mg PO QAM #90 tab 08/04/21 eszopiclone 2 mg tablet 2 mg PO HS PRN #20 tab 09/09/21 allopurinol 100 mg tablet 100 mg PO BID #180 tab 10/27/21 mecobalamin (vitamin B12) 5,000 mcg disintegrating tablet 5,000 mcg PO QAM simvastatin 20 mg tablet 20 mg PO QPM apixaban 5 mg tablet 5 mg PO BID cholecalciferol (vitamin D3) 50 mcg (2,000 unit) capsule 50 mcg PO QAM pantoprazole 40 mg tablet,delayed release (Protonix) 40 mg PO QAM metoprolol tartrate 50 mg tablet 50 mg PO BID tamsulosin 0.4 mg capsule 0.4 mg PO BID finasteride 5 mg tablet 5 mg PO HS gabapentin 600 mg tablet 600 - 1,200 mg PO BID hydrochlorothiazide 25 mg tablet 25 mg PO QAM eszopiclone 2 mg tablet 2 mg PO HS PRN allopurinol 100 mg tablet 100 mg PO BID ASK your prescriber and surgeon apixaban 5 mg tablet 5 mg PO BID DO NOT take the morning of surgery mecobalamin (vitamin B12) 5,000 mcg disintegrating tablet 5,000 mcg PO QAM cholecalciferol (vitamin D3) 50 mcg (2,000 unit) capsule 50 mcg PO QAM hydrochlorothiazide 25 mg tablet 25 mg PO QAM Take morning of surgery With a small sip of water, OTHERWISE NOTHING TO EAT OR DRINK AFTER MIDNIGHT: pantoprazole 40 mg tablet,delayed release (Protonix) 40 mg PO QAM metoprolol tartrate 50 mg tablet 50 mg PO BID tamsulosin 0.4 mg capsule 0.4 mg PO BID gabapentin 600 mg tablet 600 - 1,200 mg PO BID allopurinol 100 mg tablet 100 mg PO BID Take evening before surgery simvastatin 20 mg tablet 20 mg PO QPM metoprolol tartrate 50 mg tablet 50 mg PO BID tamsulosin 0.4 mg capsule 0.4 mg PO BID finasteride 5 mg tablet 5 mg PO HS gabapentin 600 mg tablet 600 - 1,200 mg PO BID eszopiclone 2 mg tablet 2 mg PO HS PRN (if needed) allopurinol 100 mg tablet 100 mg PO BID Other Notes If you have any questions please call us at [phone] or [phone] or [phone] or [phone]
--- NOTE | 2021-11-04 12:29 | Anesthesiology Consultation ---
Date of Service November 04, 2021 Assessment & Plan (1) Encounter for pre-operative examination: - awaiting PCP medical clearance. - Case discussed with Dr. Sal who advised cardiology pre-op evaluation and optimization. - COVID screening: Per assessment on 11/04/2021: Travel screen negative, no known COVID-19 positive contacts or current COVID-19 related symptoms in past 2 weeks. Patient vaccinated. Surgeon arranging preop COVID testing, scheduled 11/16/2021. Awaiting results. Chart Review Chart Review: Pending: Refer to Additional Notes / Consult section and Patient seen in Pre Admission Testing Teaching & Discussion Pre-Anesthesia Teaching/Discussion Notes: Instructed NPO after midnight before surgery, except medications with 15 cc of water. Medication instructions provided according to the PAT guidelines. History Surgery Operation Date: 11/18/21 09:10 Proposed Procedures p L2-L5 Decompression Fusion Spinal Cord Monitoring - Tico Campos DO Height/Weight Height: 5 ft 9.5 in Weight: 89.5 kg Allergies Allergy/AdvReac Type Severity Reaction Status Date / Time No Known Allergies Allergy Verified 10/31/21 08:55 Medications Home Medications Medication Instructions Recorded Confirmed Last Taken mecobalamin (vitamin B12) 5,000 5,000 mcg PO QAM tab 06/16/19 10/31/21 05/05/21 mcg disintegrating tablet simvastatin 20 mg tablet 20 mg PO QPM #90 tab 11/01/20 10/31/21 02/25/21 apixaban 5 mg tablet 5 mg PO BID #180 tab 11/15/20 10/31/21 06/03/21 cholecalciferol (vitamin D3) 50 50 mcg PO QAM 12/15/20 10/31/21 05/05/21 mcg (2,000 unit) capsule pantoprazole 40 mg tablet,delayed 40 mg PO QAM #90 tab 02/21/21 10/31/21 05/05/21 release (Protonix) metoprolol tartrate 50 mg tablet 50 mg PO BID #180 tab 02/25/21 10/31/21 05/05/21 tamsulosin 0.4 mg capsule 0.4 mg PO BID #180 cap 03/28/21 10/31/21 05/05/21 finasteride 5 mg tablet 5 mg PO HS 04/25/21 10/31/21 Unknown gabapentin 600 mg tablet 600 - 1,200 mg PO BID tab 06/13/21 10/31/21 Unknown hydrochlorothiazide 25 mg tablet 25 mg PO QAM #90 tab 08/04/21 10/31/21 Unknown eszopiclone 2 mg tablet 2 mg PO HS PRN #20 tab 09/09/21 10/31/21 Unknown allopurinol 100 mg tablet 100 mg PO BID #180 tab 10/27/21 10/31/21 Unknown Past Medical History Medical History (Updated 11/08/21 @ 10:02 by Tricia Heaton PA-C) Anemia Ascending aorta dilatation Per records Atrial flutter Dx 2-3 years ago - current eliquis/metoprolol - Follows w/ dr. 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 Exercise / Class Metabolic Activity III < 4 Walking/Shop/Light housework (ambulates with cane/in wheelchair, denies CP or SOB) Past Family History Family History Father Myocardial infarction Stroke Mother Alzheimer disease Brother Cancer Knee injury Denies family history of Ovarian cancer Prostate cancer Breast cancer Lung cancer Colorectal cancer Past Surgical History Surgical History (Updated 11/04/21 @ 12:36 by Tricia Heaton PA-C) H/O left inguinal hernia repair Left Direct Inguinal Hernia Repair with Mesh, Excision of lipoma (01/15/20): LMA#5 at [facility] History of arthroscopy of knee + lateral meniscectomy (Lx2, Rx1) History of arthroscopy of left shoulder 08/27/2018 ([facility] [place]) History of colonoscopy 5+ YRS AGO History of hip replacement right History of sinus surgery Pt denies History of surgery Right hip closed reduction (02/27/21): LMA#5 at [facility] History of tonsillectomy History of total knee replacement R/L S/P epidural steroid injection Status post Mohs micrographic surgery for basal cell carcinoma (BCC) Facial (2017) Status post trigger finger release Right hand (3rd digit) Past Anesthesia History No Hx of Anesthesia Complications and No Family Hx of Anesthesia Complications History of PONV No Hx of PONV and No Hx of Motion Sickness Social History Smoking Status: Former smoker tobacco type: cigarettes Smoking cigarettes per day: 20 Do You Dip or Chew Tobacco: No Smoking End Date: QUIT 1978 Hx Alcohol Use: Yes Alcohol type: wine alcohol intake frequency: 0-2 drinks per day Hx Substance Use: No substance use type: does not use Review of Systems Patient denies chest pain, shortness of breath, dyspnea on exertion, fever, chills, cough, wheezing, or palpitations. Physical Exam Vital Signs Vitals BP 145/79 P 57 TEMP 98.0 SP02 98% on RA RESP 17 Physical Full cervical extension range of motion without pain Full TMJ range of motion TMD 3.5 finger breaths Mallampati Score 3 Dentition: intact, one missing tooth right lower back, one cap-one right upper side; denies chipped or loose teeth, implants or bridges Lungs: normal respiratory effort. Clear throughout to auscultation, no adventitious breath sounds Cardiac: regular rate and rhythm, no murmurs noted Carotid arteries: negative bruit bilat Lab Results Anesthesia Preop Results Results Anesthesia Widget: WBC 5.28 K/uL (4.8-10.8) 11/04/21 Hgb 13.0 g/dL (14.0-18.0) L 11/04/21 Hct 38.8 % (42-52) L 11/04/21 Plt 214 K/uL (130-400) 11/04/21 Na 136 mmol/L (136-145) 11/04/21 K 4.4 mmol/L (3.5-5.1) 11/04/21 Cl 102 mmol/L (98-107) 11/04/21 CO2 25 mmol/L (21-32) 11/04/21 BUN 23 mg/dl (6-23) 11/04/21 Creat 1.05 mg/dl (0.6-1.4) 11/04/21 Glucose Level 82 mg/dl (70-99(Fasting)) 11/04/21 PT 11.9 Seconds (9.0-12.0) 11/04/21 PTT 37.1 Seconds (21.0-31.0) H 11/04/21 INR 1.1 (0.9-1.1) 11/04/21 Blood Type O Negative 11/04/21 Antibody Screen NEGATIVE 11/04/21 Testing Electrocardiogram Date: 11/04/21 Atrial flutter with variable AV block, rate 48 bpm RBBB Left anterior fascicular block Bifascicular block When compared with 01/12/2020 ECG, T wave inversion no longer evident in inferior leads Chest X-Ray Date: 11/04/21 FINDINGS: The cardiomediastinal and hilar silhouettes are unchanged. Mild pleural thickening of the lung apices. No pneumothorax, pleural effusion, airspace consolidation or overt pulmonary edema. Mild linear scarring/atelectasis of the lingula. Hyperinflation with diaphragmatic flattening. Degenerative changes of the shoulders and spine. The patient is mildly rotated on the lateral view. IMPRESSION: No acute process. Echocardiogram Date: 06/09/19 EF 55-60% No regional wall motion abnormalities No LVH Mildly dilated RV Severe left atrial dilation Moderate right atrial dilation Moderate mitral regurgitation Mild pulmonary hypertension, RSVP 46 mmHg
[~2021-11-18 07:14] MED LIST changes: +ACETAMINOPHEN 500 MG TAB PO SCH; -ASPI81TA28 PO; -CETICHW4 PO; +CeleBREX 200 MG CAP PO SCH; -ESZO3TAB15 PO; -FLM4 PO; -FLV1 PO; +GABAPENTIN 300 MG CAP PO SCH; -HYDR12.55 PO; +LR 15ML/HR IV SCH; -METO-551 PO; -MULT-589 PO; -PRD75 PO; -PRED-301 PO; -PRT40 PO; -SIMV40TA4 PO; -THM100 PO; -VTMD1000 PO; +ceFAZolin 2000MG 2,000 MG/15 ML SYR IV SCH
[2021-11-18] MEDS ORDERED: PROPOFOL IV EMULSION 10 MG/ML 20 ML VIAL IV ONE (08:35)
[2021-11-18] MEDS ORDERED: LIDOCAINE 2% 2 ML VIAL/AMP(20MG/ML) INFIL ONE (08:35)
[2021-11-18] MEDS ORDERED: ROCURONIUM BROMIDE 10 MG/ML 5 ML VIAL IV ONE ×2 (08:35→09:51)
[2021-11-18] MEDS ORDERED: MIDAZOLAM HCL 1 MG/ML 2ML VIAL ONE (08:35)
[2021-11-18] MEDS ORDERED: fentaNYL citrate 100 MCG/2 ML VIAL ONE ×2 (08:35→10:17)
--- NOTE | 2021-11-18 08:35 | History & Physical Bridge Note ---
Date of Service November 18, 2021 History & Physical Bridge Note I have examined the patient, reviewed the History & Physical and in the interval since the performance of the History & Physical I have noted the following changes of clinical significance: no changes noted
--- NOTE | 2021-11-18 08:36 | History & Physical Report ---
Date of Service November 18, 2021 Assessment & Plan (1) Neurogenic claudication due to lumbar spinal stenosis: Plan: L2-L5 decompression and fusion History of Present Illness Chief Complaint: Back and bilateral leg pain Primary Care Provider: Melinda Howard MD Is an 81-year-old male who presents with marked decline in status with neurogenic claudication. Failed extensive course of nonoperative care is here for surgical invention. Allergies Allergy/AdvReac Type Severity Reaction Status Date / Time No Known Allergies Allergy Verified 11/18/21 08:11 Home Medications Medication Instructions Recorded Confirmed Type cholecalciferol (vitamin D3) 50 50 mcg PO QAM 12/15/20 11/18/21 History mcg (2,000 unit) capsule finasteride 5 mg tablet (Proscar) 5 mg PO HS 04/25/21 11/18/21 History gabapentin 600 mg tablet 600 - 1,200 mg PO BID tab 06/13/21 11/18/21 History hydrochlorothiazide 25 mg tablet 25 mg PO QAM #90 tab 08/04/21 11/18/21 Rx allopurinol 100 mg tablet 100 mg PO BID #180 tab 10/27/21 11/18/21 Rx metoprolol tartrate 25 mg tablet 25 mg PO BID #180 tab 11/09/21 11/18/21 Rx apixaban 5 mg tablet (Eliquis) 5 mg PO BID 11/18/21 11/18/21 History eszopiclone 2 mg tablet (Lunesta) 2 mg PO HS PRN 11/18/21 11/18/21 History simvastatin 20 mg tablet (Zocor) 20 mg PO QPM 11/18/21 11/18/21 History tamsulosin 0.4 mg capsule (Flomax) 0.4 mg PO BID 11/18/21 11/18/21 History Past Med/Surg History Medical History (Updated 11/18/21 @ 08:36 by Tico Campos DO) Anemia Ascending aorta dilatation Per records Atrial flutter Dx 2-3 years ago - current eliquis/metoprolol - Follows w/ dr. 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 Chronic back pain Chronic steroid use hx, pt states oral steroids stopped 2 months ago GERD (gastroesophageal reflux disease) controlled, stable per pt Gout Hyperlipidemia Hypertension Moderate mitral regurgitation Neuropathy WALKS WITH A CANE Osteoarthritis Polymyalgia rheumatica listed in ENT note, pt denies Prediabetes PER RECORD Pulmonary hypertension mild per 2019 echo Sleep apnea CPAP-compliant Spinal stenosis of lumbar region with radiculopathy Surgical History H/O left inguinal hernia repair Left Direct Inguinal Hernia Repair with Mesh, Excision of lipoma (01/15/20): LMA#5 at [facility] History of arthroscopy of knee + lateral meniscectomy (Lx2, Rx1) History of arthroscopy of left shoulder 08/27/2018 ([facility] [place]) History of colonoscopy 5+ YRS AGO History of hip replacement right History of sinus surgery Pt denies History of surgery Right hip closed reduction (02/27/21): LMA#5 at [facility] History of tonsillectomy History of total knee replacement R/L S/P epidural steroid injection Status post Mohs micrographic surgery for basal cell carcinoma (BCC) Facial (2016) Status post trigger finger release Right hand (3rd digit) Family History Father Myocardial infarction Stroke Mother Alzheimer disease Brother Cancer Knee injury Denies family history of Ovarian cancer Prostate cancer Breast cancer Lung cancer Colorectal cancer Social History Smoking Status: Former smoker Age Started Using Tobacco: 17; Age Quit Using Tobacco: 27; packs per day: 1; Years Smoked: 10; Cigarettes Per Day: 20; Smoking End Date: QUIT 1978; Number of Years Since Quit: 40; Second Hand Exposure: No; Do You Dip or Chew Tobacco: No; Hx Alcohol Use: Yes Alcohol type: beer, wine and hard liquor Hx Substance Use: No Preferred Language: Kosovan Communication Ability: Effective Visual Impairment: No Limitations Hearing Ability: Normal Dairy Nutritionist Required: No Beliefs That Will Affect Care: None marital status: Current Living Situation: Spouse current occupational status: retired Other Information That Helps Us Care for You: No Feels Safe at Home: Yes Safety Concerns: Feels Safe At This Time Childhood Exposure to Second-Hand Smoke: No Seatbelt Use: always Assistive Devices: None Physical Exam Physical Exam: Patient is alert and oriented Heart regular in rhythm Lungs clear
[2021-11-18] MEDS ORDERED: ONDANSETRON INJ 2 MG/ML 2 ML VIAL IV PRN ×2 (08:38→13:35)
[2021-11-18] MEDS ORDERED: ePHEDrine sulfate 50 MG/ML AMP IV PRN (08:38)
[2021-11-18] MEDS ORDERED: fentaNYL citrate 100 MCG/2 ML VIAL IV PRN (08:38)
[2021-11-18] MEDS ORDERED: ATROPINE SULFATE 0.1 MG/ML 10ML SYR IV PRN (08:38)
[2021-11-18] MEDS ORDERED: EPINEPHrine INJ 1 MG/ML AMP ONE (09:01)
[2021-11-18] MEDS ORDERED: ceFAZolin 330 MG/ML 1 GM VIAL ONE (09:01)
[2021-11-18] MEDS ORDERED: BUPIVACAINE 0.5 % 5 MG/1 ML MPF 30ML VIAL ONE (09:01)
[2021-11-18] MEDS ORDERED: PHENYLEPHRINE HCL 10 MG/ML VIAL ONE (09:41)
[2021-11-18] MEDS ORDERED: ePHEDrine sulfate 50 MG/ML AMP ONE (09:51)
[2021-11-18] MEDS ORDERED: ONDANSETRON INJ 2 MG/ML 2 ML VIAL ONE (10:17)
[2021-11-18] MEDS ORDERED: DEXAMETHASONE SOD INJ 4 MG/ML VIAL ONE (10:17)
[2021-11-18] MEDS ORDERED: FLOSEAL HEMOSTATIC MATRIX 10ML TOP ONE (11:36)
--- NOTE | 2021-11-18 11:46 | Operative Report ---
Post Operative Report Pre & Post Diagnosis Operation Date: 11/18/21 09:05 Pre-Op Diagnosis: Neurogenic Claudication due to Lumbar Spinal Stenosis L2-L5 Post-Op Diagnosis: Neurogenic Claudication due to Lumbar Spinal Stenosis L2-L5 I identified the patient and participated in the time-out.: Yes Procedure Operation Date: 11/18/21 09:05 Actual Procedures #1 lumbar decompression with bilateral medial facetectomies and foraminotomies L2-L3, L4-5 and L5-S1. #2 posterior spinal fusion L2-L5 for #3 placement posterior segmental instrumentation L2-L5. #4 interbody fusion L3-L4 L4-L5 #5 placement of Spira cage 13 x 26 mm at L3-L4 and L4-L5 #6 placement locally harvested morselized autograft in the posterior gutters per #7 placement infuse collagen sponge, and master graft in the posterior lateral gutters and I factor interbody space. Surgeon Tico Campos, Sterile Process Tech Morris Webb Estimated Blood Loss 200 Findings Consistent with Post-Op Diagnosis Specimens None Indications This is an 81-year-old male presents with above-mentioned diagnosis after failing course of nonoperative care and having state decline in status is here for surgical intervention. Description of Procedure Patient was met with identified informed consent obtained. Patient was then taken to the operative suite underwent a patient placed in a prone position the [place] table top Alfa frame. All bony prominences well-padded eyes inspected to ensure no external pressure placed upon the. This point the lumbar spine was prepped and draped in a normal sterile fashion. Sharp dissection with the assistance of Bovie cautery was performed down to and exposing the lamina transverse processes of L2 L3-L4-L5 bilaterally with assistance of fluoroscopy. From caudal cephalad fashion complete laminectomy of L4 L3 and L2 was performed including bilateral medial facetectomies and foraminotomies addressing severe spinal stenosis. Pedicle screws then placed in L2-L3 L4-5 bilaterally with assistance of fluoroscopy and appropriate sized vale placed. By way of a transforaminal approach on the left complete discectomy of L4-5 was performed endplates curetted to subcortical bleeding bone and a 13 x 26 mm Spira cage filled I factor tapped in position. Then proceeded to L3-L4 and again by way of transfer approach and left complete discectomy performed endplates curetted to subcortically bone and again a 13 x 26 mm titanium cage filled with I factor tapped in position. The rods then compressed locked in final position bilaterally. The transverse processes of L to L3 L4-5 burred to subcortical bleeding bone. Infuse collagen sponge master graft local autograft was placed in the posterior gutters. 15 round LJ drain inserted. The incision was then closed with 1 Vicryl the fascia 2-0 Vicryl subcutaneously and 4 Monocryl for final skin closure. Steri-Strip sterile dressings placed. Patient waken taken back in stable condition. Please note spinal cord monitoring was utilized at the procedure no changes noted. Lastly Morris Webb was present at the entire surgery and while the patient positioning complex portions of the surgery and final skin closure. I attest to the content of the Intraoperative Record and any orders documented therein. Any exceptions are noted below.
[2021-11-18] MEDS ORDERED: GLYCOPYRROLATE 0.2 MG/ML VIAL ONE ×2 (11:54)
[2021-11-18] MEDS ORDERED: NEOSTIGMINE METHYLSULFATE 1 MG/ML 10ML VIAL ONE (11:54)
[2021-11-18] MEDS ORDERED: ATROPINE SULFATE 1MG/2.5ML SYR ONE (11:54)
--- NOTE | 2021-11-18 12:20 | Fluoroscopy Report ---
FL lumbar spine 2-3V CLINICAL HISTORY: L2-L5 DECOMPRESSION AND FUSION WITH INTERBODY TECHNIQUE: 2 views were obtained with the C-arm in the OR with the above procedure. Total fluoroscopy time was 24.3 seconds. Total skin dose was 142 mGy. Comparison: Comparison is made to MRI lumbar spine 09/26/2020 FINDINGS/IMPRESSION: Intraoperative images were obtained of L2-L5 decompression and fusion. Please correlate with intraoperative fluoroscopy and operative report. ACT 112: Negative or not required by law. Electronically signed by: Pierre Berry M.D. 11/18/2021 12:19 PM
[2021-11-18] MEDS ORDERED: ONDANSETRON 4 MG OD TAB PO PRN (13:35)
[2021-11-18] MEDS ORDERED: HYDROmorphone INJ 1 MG/ML SYRINGE IV PRN (13:35)
[2021-11-18] MEDS ORDERED: METOCLOPRAMIDE HCL INJ 5 MG/ML 2 ML VIAL IV PRN (13:35)
[2021-11-18] MEDS ORDERED: HYDROmorphone INJ 0.5 MG/0.5 ML SYR IV PRN (13:35)
[2021-11-18] MEDS ORDERED: ACETAMINOPHEN 1,000 MG/100 ML VIAL IV PRN (13:35)
[2021-11-18] MEDS ORDERED: DO NOT ADMINISTER FLU VACCINE PRN (13:35)
[2021-11-18] MEDS ORDERED: diphenhydrAMINE Capsule 25 MG CAP PO PRN (13:35)
[2021-11-18] MEDS: SODIUM CHLORIDE 0.9% 1000ML 1,000 ML IV SCH ×2 (13:35→23:38)
[2021-11-18] MEDS ORDERED: hydrOXYzine HCl 25 MG TAB PO PRN (13:35)
[2021-11-18] MEDS ORDERED: ALUMINUM/MAGNESIUM SUSP 30 ML UDC PO PRN (13:35)
[2021-11-18] MEDS ORDERED: bisacodyL 10 MG SUPP PR PRN (13:35)
[2021-11-18] MEDS ORDERED: NALOXONE HCL 0.4 MG/1 ML VIAL/CARP IV PRN (13:35)
[2021-11-18] MEDS ORDERED: DO NOT ADMINISTER PNEUMOCOCCAL VACCINE PRN (13:35)
[2021-11-18] MEDS ORDERED: MAGNESIUM HYDROXIDE SUSP 30 ML UDC PO PRN (13:35)
[2021-11-18] MEDS ORDERED: PROMETHAZINE HCL 12.5 MG in SODIUM CHLORIDE 0.9% 50 ML IV PRN (13:35)
[2021-11-18] MEDS ORDERED: FAMOTIDINE 20 MG TAB PO PRN (13:35)
[2021-11-18] MEDS ORDERED: SOD PHOSPHATE/SOD BIPHOSPHATE ENEMA 132 ML BTL PR PRN (13:35)
[2021-11-18] MEDS ORDERED: LORazepam 2 MG/1 ML VIAL IV PRN (13:35)
[2021-11-18] MEDS ORDERED: traMADol HCL 50 MG TABLET PO PRN (13:35)
[2021-11-18] MEDS ORDERED: ACETAMINOPHEN 500 MG TAB PO PRN (13:35)
[2021-11-18] MEDS ORDERED: LORazepam 0.5 MG TAB PO PRN (13:35)
[2021-11-18] MEDS: oxyCODONE HCL IR 5 MG TAB (IMMEDIATE RELEASE) PO PRN ×2 (14:35→15:37)
--- NOTE | 2021-11-18 15:16 | Anesthesiology Progress Note ---
Date of Service November 18, 2021 Anesthesia Post Procedure Vital Signs Vital Signs: Temp Pulse Pulse Resp BP BP Pulse Ox 11/18/21 14:30 97.3 F L 57 L 16 142/82 H 100 11/18/21 14:00 97.5 F L 54 L 16 135/81 97 11/18/21 13:30 97.7 F 56 L 16 124/73 99 11/18/21 13:10 97.3 F L 52 L 16 122/66 94 11/18/21 13:00 51 L 16 118/70 94 11/18/21 12:50 55 L 16 123/64 96 11/18/21 12:40 97.2 F L 53 L 16 118/73 96 11/18/21 12:30 57 L 16 121/75 95 11/18/21 12:20 57 L 16 122/71 98 11/18/21 12:11 96.8 F L 59 L 16 122/71 99 11/18/21 08:19 98.4 F 60 18 163/86 H 98 Pain Intensity Lower Back: Pain Intensity: 5 Transfer of Care Handoff Completed per policy Notes Mental Status: alert / awake / arousable and participated in evaluation Patient Amnestic to Procedure: Yes Nausea / Vomiting: adequately controlled Pain: adequately controlled Airway Patency, RR, SpO2: stable & adequate BP & HR: stable & adequate Hydration State: stable & adequate Anesthetic Complications: no major complications apparent and Pt Satisfied with anesthetic care
[2021-11-18] MEDS: ceFAZolin 2000MG 2,000 MG/15 ML SYR IV SCH (17:56)
--- NOTE | 2021-11-18 18:44 | Hospitalist Consultation ---
Date of Consultation November 18, 2021 Assessment & Plan (1) Neurogenic claudication due to lumbar spinal stenosis: Neurogenic claudication with spinal stenosis at L2-L5 Status post decompression and fusion with cage placement 11/18/2021 Stop management and pain management per primary surgical team Hemodynamically stable postop Covid negative Pain adequately controlled at time of bedside assessment (2) Atrial fibrillation: Atrial flutter and fibrillation with bradycardia Recommend resuming Eliquis 24-48 hours when okay per surgery Continue metoprolol 25 mg p.o. twice daily tartrate Patient has had some intermittent bradycardia, rate is currently normal and he has been asymptomatic with this. If he becomes symptomatic or has pauses would decrease metoprolol and reassess at that point. If asymptomatic no indication for pacer unless pause >2.5s (3) Hypertension: Hypertension Continue hydrochlorothiazide 25 mg p.o. every morning Metoprolol as above Continue simvastatin 20 mg p.o. nightly Normotensive at time of assessment (4) Prediabetes: Prediabetes Preop BSG 82 Preop creatinine 1.05, normal May check BMP in morning, otherwise no acute intervention for this at this time (5) Enlarged prostate with lower urinary tract symptoms (LUTS): LUTS with BPH Continue Flomax 0.4 mg p.o. twice daily Continue finasteride 5 mg p.o. nightly Peace in place draining moderate to light yellow urine (6) Gout: Gout May continue allopurinol twice daily No acute gout exacerbation History of sleep apnea Continue CPAP at night Would defer Lunesta in the postop period, may use melatonin 3 mg nightly as needed and later while inpatient. Discussed this with patient, reports he does not use Lunesta at home often even though he has it, sometimes uses Unisom. Patient will consider using melatonin instead of Unisom, discussed antihistamine risk of sedation and confusion History of Present Illness Attending Physician: Tico Campos, DO History of Present Illness Sarahi is a 81-year-old male who presented for lumbar decompression and fusion due to neurogenic claudication with spinal stenosis at L2-L5. Underwent operative intervention with Dr. Campos 11/18 which was by report uncomplicated with 200 cc of blood loss. Per sarahi had been having back pain shooting into both legs which preventing him from taking any steps. Not sure how it will be post-op because hasn't tried to stand yet. No chest pain, shortness of breath, difficulty breathing, chest pressure, lightheadedness, or dizziness. Hx of afib/aflutter. Recently had some bradycardia (asymptomatic). Has been OK on his current metoprolol dose for >2 years. No syncope or prsyncope. No pacer. No headaches. BP has been 'good.' 'Worked out 6 days a week until my back problems this past year.' Denies DM/high blood sugars. Uses CPAP. Brought in his home CPAP which he is OK to use. Last took BP meds yesterday Peace in place with hardy urine R hip replaced december of last year, fell 5 weeks after and had to have it put back in. In nervous after that experience. Is looking forward to getting stronger. Medical History: Reviewed Medications: Reviewed Surgical History: Reviewed Allergies: Reviewed Social History:No tobacco product, 1 glass of wine with dinner daily. No recreational drug use. Code Status: Full Code Allergies Allergy/AdvReac Type Severity Reaction Status Date / Time No Known Allergies Allergy Verified 11/18/21 08:11 Home Medications Medication Instructions Recorded Confirmed Type cholecalciferol (vitamin D3) 50 50 mcg PO QAM 12/15/20 11/18/21 History mcg (2,000 unit) capsule finasteride 5 mg tablet (Proscar) 5 mg PO HS 04/25/21 11/18/21 History gabapentin 600 mg tablet 600 - 1,200 mg PO BID tab 06/13/21 11/18/21 History hydrochlorothiazide 25 mg tablet 25 mg PO QAM #90 tab 08/04/21 11/18/21 Rx allopurinol 100 mg tablet 100 mg PO BID #180 tab 10/27/21 11/18/21 Rx metoprolol tartrate 25 mg tablet 25 mg PO BID #180 tab 11/09/21 11/18/21 Rx apixaban 5 mg tablet (Eliquis) 5 mg PO BID 11/18/21 11/18/21 History eszopiclone 2 mg tablet (Lunesta) 2 mg PO HS PRN 11/18/21 11/18/21 History simvastatin 20 mg tablet (Zocor) 20 mg PO QPM 11/18/21 11/18/21 History tamsulosin 0.4 mg capsule (Flomax) 0.4 mg PO BID 11/18/21 11/18/21 History Patient History Medical History Anemia Ascending aorta dilatation Per records Atrial flutter Dx 2-3 years ago - current eliquis/metoprolol - Follows w/ dr. 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 Chronic back pain Chronic steroid use hx, pt states oral steroids stopped 2 months ago GERD (gastroesophageal reflux disease) controlled, stable per pt Gout Hyperlipidemia Hypertension Moderate mitral regurgitation Neuropathy WALKS WITH A CANE Osteoarthritis Polymyalgia rheumatica listed in ENT note, pt denies Prediabetes PER RECORD Pulmonary hypertension mild per 2019 echo Sleep apnea CPAP-compliant Spinal stenosis of lumbar region with radiculopathy Surgical History H/O left inguinal hernia repair Left Direct Inguinal Hernia Repair with Mesh, Excision of lipoma (01/15/20): LMA#5 at [facility] History of arthroscopy of knee + lateral meniscectomy (Lx2, Rx1) History of arthroscopy of left shoulder 08/27/2018 ([facility] [place]) History of colonoscopy 5+ YRS AGO History of hip replacement right History of sinus surgery Pt denies History of surgery Right hip closed reduction (02/27/21): LMA#5 at [facility] History of tonsillectomy History of total knee replacement R/L S/P epidural steroid injection Status post Mohs micrographic surgery for basal cell carcinoma (BCC) Facial (2016) Status post trigger finger release Right hand (3rd digit) Family History Father Myocardial infarction Stroke Mother Alzheimer disease Brother Cancer Knee injury Denies family history of Ovarian cancer Prostate cancer Breast cancer Lung cancer Colorectal cancer Social History Smoking Status: Former smoker Age Started Using Tobacco: 17; Age Quit Using Tobacco: 27; packs per day: 1; Years Smoked: 10; Cigarettes Per Day: 20; Smoking End Date: QUIT 1978; Number of Years Since Quit: 40; Second Hand Exposure: No; Do You Dip or Chew Tobacco: No; Hx Alcohol Use: Yes Alcohol type: beer, wine and hard liquor Hx Substance Use: No Preferred Language: Comoran Communication Ability: Effective Visual Impairment: No Limitations Hearing Ability: Normal Trailer Body Assembler Required: No Beliefs That Will Affect Care: None marital status: Current Living Situation: Spouse current occupational status: retired Other Information That Helps Us Care for You: No Feels Safe at Home: Yes Safety Concerns: Feels Safe At This Time Childhood Exposure to Second-Hand Smoke: No Seatbelt Use: always Assistive Devices: None Review of Systems Review of Systems: All systems reviewed & are unremarkable except as noted in Subjective Physical Exam Physical Exam: General: A&Ox3. NAD. Cooperative. HEENT: Atraumatic, normocephalic. Vision and hearing grossly intact. Pulm: CTAB A&P. -wheezes, -rales, -rhonchi. Symmetrical chest rise. No increase in work of breathing. No respiratory distress. Cardiac: Irregularly irregular, -mrg. Radial pulses intact and symmetrical. Abdominal: Nontender, nondistended, soft. BS present. Skin/back: Surgical dressing intact, C/D/I, no drain. Extremities: Warm, dry. Sensation intact to soft touch in hands and feet bilaterally without asymmetry. Loan Processor strength and ankle dorsiflexion/plantarflexion intact without deficit or asymmetry. : Peace in place draining moderate to light-colored urine Results & Data Results & Data ([facility]) Vital Signs (Past 12 Hours) Vital Signs Temp Pulse Pulse Resp BP BP Pulse Ox 11/18/21 16:30 36.3 C L 60 16 137/76 96 11/18/21 15:30 36.3 C L 59 L 16 158/79 H 99 11/18/21 14:30 36.3 C L 57 L 16 142/82 H 100 11/18/21 14:00 36.4 C L 54 L 16 135/81 97 11/18/21 13:30 36.5 C 56 L 16 124/73 99 11/18/21 13:10 36.3 C L 52 L 16 122/66 94 11/18/21 13:00 51 L 16 118/70 94 11/18/21 12:50 55 L 16 123/64 96 11/18/21 12:40 36.2 C L 53 L 16 118/73 96 11/18/21 12:30 57 L 16 121/75 95 11/18/21 12:20 57 L 16 122/71 98 11/18/21 12:11 36.0 C L 59 L 16 122/71 99 11/18/21 08:19 36.9 C 60 18 163/86 H 98 PG Care Time/CCT Total # of Minutes Spent Total Time Spent with Patient: Total time spent is greater than 50% in coordination of care (as documented) at patient's floor/unit and/or counseling patient: Coding Level of Care Code 53123 Inpt Consult Level 3 Diagnoses Neurogenic claudication due to lumbar spinal stenosis M48.062 Atrial fibrillation I48.91 Hypertension I10 Prediabetes R73.03 Enlarged prostate with lower urinary tract symptoms (LUTS) N40.1 Gout M10.9
[2021-11-18] MEDS: allopurinoL 100 MG TAB PO SCH (20:56)
[2021-11-18] MEDS: FINASTERIDE 5 MG TAB PO SCH (20:56)
[2021-11-18] MEDS: DOCUSATE SODIUM/SENNA 50/8.6MG TAB PO SCH (20:56)
[2021-11-18] MEDS: METOPROLOL TARTRATE 25 MG TAB PO SCH (20:57)
[2021-11-18] MEDS: SIMVASTATIN 20 MG TAB PO SCH (20:58)
[2021-11-18] MEDS: TAMSULOSIN HCL 0.4 MG CAP PO SCH (20:58)
[2021-11-18] MEDS: GABAPENTIN 600 MG TAB PO SCH (21:57)
[2021-11-19] MEDS: ceFAZolin 2000MG 2,000 MG/15 ML SYR IV SCH (01:22)
[2021-11-19] MEDS: POLYETHYLENE (MIRALAX) 17 GM PACK PO SCH ×4 (05:29→23:58)
[2021-11-19 07:57] LABS: Basophils # (auto) 0.01 K/uL (0-0.2); Basophils % (auto) 0.1 %; Hematocrit (blood only) 30.3 % (42-52); Hemoglobin 10.3 g/dL (14.0-18.0); Immature Granulocytes # (auto) 0.02 K/uL (0.00-0.02); Immature Granulocytes % (auto) 0.2 %; Lymphocytes # (auto) 0.52 K/uL (1.2-3.4); Lymphocytes % (auto) 4.5 %; Mean Corpuscular Hemoglobin 33.2 pg (25-34); Mean Corpuscular Volume 97.7 fL (80-100); Mean Platelet Volume 10.9 fL (7.4-10.4); Monocytes # (auto) 1.02 K/uL (0.11-0.59); Monocytes % (auto) 8.8 %; Neutrophils # (auto) 10.08 K/uL (1.4-6.5); Neutrophils % (auto) 86.4 %; Platelet Count 195 K/uL (130-400); RDW Coefficient of Variation 14.1 % (11.5-14.5); RDW Standard Deviation 50.2 fL (36.4-46.3); White Blood Count 11.65 K/uL (4.8-10.8)
[2021-11-19] MEDS: oxyCODONE HCL IR 5 MG TAB (IMMEDIATE RELEASE) PO PRN (08:11)
[2021-11-19 08:17] LABS: BUN Creatinine Ratio 29.2 (10-20); Calcium 8.2 mg/dl (8.5-10.1); Creatinine Clr Calc Pharmacy 56.2 ml/min; Est GFR (African American) 69.8 ml/min; Est GFR (Non-African American) 60.2 ml/min; Potassium 4.5 mmol/L (3.5-5.1)
[2021-11-19] MEDS: allopurinoL 100 MG TAB PO SCH ×2 (09:50→20:19)
[2021-11-19] MEDS: GABAPENTIN 600 MG TAB PO SCH ×2 (09:50→20:20)
[2021-11-19] MEDS: hydroCHLOROthiazide 25 MG TAB PO SCH (09:51)
[2021-11-19] MEDS: TAMSULOSIN HCL 0.4 MG CAP PO SCH ×2 (09:51→20:19)
[2021-11-19] MEDS: CHOLECALCIFEROL 1,000 UNITS 25 MCG TAB PO SCH (09:51)
[2021-11-19] MEDS: METOPROLOL TARTRATE 25 MG TAB PO SCH ×2 (09:51→20:20)
--- NOTE | 2021-11-19 11:32 | Orthopedic Progress Note ---
Date of Service November 19, 2021 Assessment & Plan (1) Neurogenic claudication due to lumbar spinal stenosis: Plan: This time continue physical therapy monitor his LJ output hopefully discharge home in next few days. Admission and Anticipated Discharge Date Admission Date: November 18, 2021 Subjective Patient's back pain is controlled leg symptoms markedly improved Physical Exam Physical Exam: Patient is in the chair at the bedside. He is comfortable. Is good strength testing. Results & Data ([facility]) Vital Signs (Past 12 Hours) Vital Signs Temp Pulse Resp BP Pulse Ox 11/19/21 09:49 62 116/68 11/19/21 07:46 36.5 C 55 L 18 119/54 L 99 11/19/21 01:55 36.5 C 59 L 117/71 98
--- NOTE | 2021-11-19 14:12 | Hospitalist Progress Note ---
Date of Service November 19, 2021 Assessment & Plan (1) Neurogenic claudication due to lumbar spinal stenosis: Plan: Neurogenic claudication with spinal stenosis at L2-L5 Status post decompression and fusion with cage placement 11/18/2021 Stop management and pain management per primary surgical team Hemodynamically stable postop Covid negative Pain adequately controlled at time of bedside assessment - Post op labs reviewed with nothing concerning for post operative period. (2) Atrial fibrillation: Plan: Atrial flutter and fibrillation with bradycardia Recommend resuming Eliquis 24-48 hours when okay per surgery Continue metoprolol 25 mg p.o. twice daily tartrate (3) Hypertension: Plan: Hypertension Continue hydrochlorothiazide 25 mg p.o. every morning Metoprolol as above Continue simvastatin 20 mg p.o. nightly Normotensive at time of assessment (4) Prediabetes: Plan: Prediabetes Preop BSG 82 Preop creatinine 1.05, normal (5) Enlarged prostate with lower urinary tract symptoms (LUTS): Plan: LUTS with BPH Continue Flomax 0.4 mg p.o. twice daily Continue finasteride 5 mg p.o. nightly (6) Gout: Plan: Gout May continue allopurinol twice daily No acute gout exacerbation Plan: History of sleep apnea Continue CPAP at night Prefer Lunesta over sedating antihistamines Thank you for the consult. Patient appears stable from a medical perspective post operatively and pain improved from pre-op spinal stenosis therefore we will sign off at this time. Please contact the medical team via Jamison text if you wish us to review the patient again. Admission and Anticipated Discharge Date Admission Date: November 18, 2021 Subjective patient doing well post operatively. Pain improved down his legs from pre-ope rative period. No acute medical issues identified. Patient uses Unasom usually to sleep and discussed the extensive side effects of this. Prefer Lunesta rather than sedating anti-histamines. Post op labs reviewed. Review of Systems Review of Systems: All systems reviewed & are unremarkable except as noted in Subjective Physical Exam Constitutional: WD/WN, vitals as above Eyes: + anicteric sclerae; normal pupil size ENMT: external ear and nose normal, oropharynx normal Respiratory: normal respiratory effort, lungs clear to auscultation Cardiovascular: RRR, no murmur, no edema Gastrointestinal (Abdomen): normal bowel sounds, soft, nontender, no hepatosplenomegaly Musculoskeletal: no cyanosis or clubbing, extremities motor strength 5/5 Skin: no rashes, warm and dry Neurologic: moves all extremities and awake; not confused Psychiatric: A+Ox3, euthymic affect Results & Data Results & Data ([facility]) Vital Signs (Past 12 Hours) Vital Signs Temp Pulse Resp BP Pulse Ox 11/19/21 12:46 37 C 61 16 110/66 95 11/19/21 09:49 62 116/68 11/19/21 07:46 36.5 C 55 L 18 119/54 L 99 PG Care Time/CCT Total # of Minutes Spent Total Time Spent with Patient: Total time spent is greater than 50% in coordination of care (as documented) at patient's floor/unit and/or counseling patient: Coding Level of Care Code 97454 Subseq Obs Care Lvl 2 Diagnoses Neurogenic claudication due to lumbar spinal stenosis M48.062 Atrial fibrillation I48.91 Hypertension I10 Prediabetes R73.03 Enlarged prostate with lower urinary tract symptoms (LUTS) N40.1 Gout M10.9
[2021-11-19] MEDS: SIMVASTATIN 20 MG TAB PO SCH (20:19)
[2021-11-19] MEDS: DOCUSATE SODIUM/SENNA 50/8.6MG TAB PO SCH (20:19)
[2021-11-19] MEDS: FINASTERIDE 5 MG TAB PO SCH (20:19)
[2021-11-19] MEDS: ACETAMINOPHEN 500 MG TAB PO SCH (20:21)
[2021-11-19] MEDS: ESZOPICLONE 1 MG TAB PO PRN (21:53)
[2021-11-20] MEDS: POLYETHYLENE (MIRALAX) 17 GM PACK PO SCH ×3 (06:01→18:26)
[2021-11-20] MEDS: oxyCODONE HCL IR 5 MG TAB (IMMEDIATE RELEASE) PO PRN (08:10)
[2021-11-20] MEDS: ACETAMINOPHEN 500 MG TAB PO SCH ×3 (09:55→20:53)
[2021-11-20] MEDS: allopurinoL 100 MG TAB PO SCH ×2 (09:55→20:54)
[2021-11-20] MEDS: METOPROLOL TARTRATE 25 MG TAB PO SCH ×2 (09:55→21:01)
[2021-11-20] MEDS: hydroCHLOROthiazide 25 MG TAB PO SCH (09:55)
[2021-11-20] MEDS: TAMSULOSIN HCL 0.4 MG CAP PO SCH ×2 (09:55→20:56)
[2021-11-20] MEDS: CHOLECALCIFEROL 1,000 UNITS 25 MCG TAB PO SCH (09:55)
[2021-11-20] MEDS: GABAPENTIN 600 MG TAB PO SCH ×2 (09:55→20:55)
--- NOTE | 2021-11-20 11:10 | Orthopedic Progress Note ---
Date of Service November 20, 2021 Assessment & Plan (1) Neurogenic claudication due to lumbar spinal stenosis: Plan: At this time we will maintain the LJ drain until tomorrow. We will continue advance his bowel regimen. Regarding reinitiation of Eliquis Sunday or Sunday may be reasonable. He still has considerable LJ output. Admission and Anticipated Discharge Date Admission Date: November 18, 2021 Subjective Patient's back pain is controlled leg pain markedly improved Physical Exam Physical Exam: Patient is in a chair at the bedside. Is good strength testing. Results & Data ([facility]) Vital Signs (Past 12 Hours) Vital Signs Temp Pulse Resp BP Pulse Ox 11/20/21 09:54 66 127/70 11/20/21 07:36 36.7 C 56 L 16 103/67 96
[2021-11-20] MEDS: DOCUSATE SODIUM/SENNA 50/8.6MG TAB PO SCH (20:54)
[2021-11-20] MEDS: SIMVASTATIN 20 MG TAB PO SCH (20:55)
[2021-11-20] MEDS: FINASTERIDE 5 MG TAB PO SCH (20:55)
[2021-11-20] MEDS: ESZOPICLONE 1 MG TAB PO PRN (21:01)
[2021-11-21] MEDS: POLYETHYLENE (MIRALAX) 17 GM PACK PO SCH ×2 (00:45→05:52)
[2021-11-21] MEDS: hydroCHLOROthiazide 25 MG TAB PO SCH (09:33)
[2021-11-21] MEDS: allopurinoL 100 MG TAB PO SCH (09:33)
[2021-11-21] MEDS: GABAPENTIN 600 MG TAB PO SCH (09:33)
[2021-11-21] MEDS: CHOLECALCIFEROL 1,000 UNITS 25 MCG TAB PO SCH (09:33)
[2021-11-21] MEDS: ACETAMINOPHEN 500 MG TAB PO SCH (09:33)
[2021-11-21] MEDS: TAMSULOSIN HCL 0.4 MG CAP PO SCH (09:34)
[2021-11-21] MEDS: METOPROLOL TARTRATE 25 MG TAB PO SCH (09:38)
--- NOTE | 2021-11-21 09:54 | Discharge Summary ---
Date of Service November 21, 2021 Admission HPI Per Admitting Provider Is an 81-year-old male who presents with marked decline in status with neurogenic claudication. Failed extensive course of nonoperative care is here for surgical invention. Principal Diagnosis Lumbar spinal stenosis with neurogenic claudication Discharge Data Allergies Allergy/AdvReac Type Severity Reaction Status Date / Time No Known Allergies Allergy Verified 11/18/21 08:11 Consultations 11/18/21 13:35 Consult Hospitalist Routine Procedures Performed Operation Date: 11/18/21 09:05 Actual Procedures p L2-L5 Decompression and Fusion, Spinal Cord Monitoring, Application of I- Factor and Use of [place]end and Infuse(Not Applicable) - Tico Campos DO Ordered Studies 11/18/21 09:05 FL lumbar spine 2-3V Routine Hospital Course (1) Neurogenic claudication due to lumbar spinal stenosis: Patient with lumbar decompression fusion tolerated this well taken to the orthopedic floor postoperative. Postop day 1 he was up and ambulating progressed to postop day #2 on postop day #3 pain was well controlled excellent strength testing. LJ drain decreasing appropriate. Safely discharged home. Discharge orders instructions from the chart for further review. Total Time Total Time Spent Total Time Spent (In Minutes): 20 minutes Discharge Plan Discharge Items Patient Disposition: Home - Self-Care Reason For Visit: Spinal Stenosis, Lumbar Region Discharge Diagnosis: Lumbar spinal stenosis with neurogenic claudication Activity: As commented below Non-emergency contact: Primary Care Provider Call non-emergency contact if: you have any medication questions Follow-up/Referrals: Melinda Howard MD [Primary Care Provider] - Diet: Regular Addtl Attending Provider Instructions: ACTIVITY RECOMMENDATIONS: SELF CARE INSTRUCTIONS AFTER THORACIC/LUMBAR FUSIONS 1. You may walk to your tolerance. It is good exercise for your legs and back. Expect some back and intermittent leg aches and pains. 2. You may perform "counter-top" level activities (make a sandwich, lizeth with a project, etc.). 3. No bending or lifting of more than 10 pounds or back twisting of any nature (roll like a log when turning in bed). 4. You may ride in a car for 20-30 minutes at a time. No driving until after your first visit with your doctor. 5. Frequent changes of position and restricting sitting to 30 minutes at a time will help limit the amount of back spasms and stiffness you may experience. 6. You may discontinue the use of ambulatory aids (cane, crutches, etc.) once your strength and confidence allow. 7. You may veterinary toxicologist the shower and let water strike your incision when you arrive home at least once daily. Do not take a tub bath, sit in a hot tub or go into a swimming pool until after your first recheck in the office. SPECIAL CARE INSTRUCTIONS: VERY IMPORTANT TO READ AND REVIEW A. Your surgical incision has been closed with a cosmetic suture under the skin that will dissolve in about 6 weeks. In 14 days, you can use a pair of clean scissors and cut the suture that is left outside of the skin at the ends of your incision. 1. The small skin tapes can be removed 7 days after surgery if they have not fallen off by that point. 2. You may keep the wound open to air as much as possible to promote healing after post-op day number 5 unless told otherwise by your doctor. 3. If you think the wound looks like it is becoming infected (redness or wo rsening drainage) and/or you are experiencing fever, chill or worsening back pain and muscle spasms, contact the office so that we may evaluate you as soon as possible. B. Complications are uncommon, but please contact us if you have any signs or symptoms of: 1. wound infection (fever higher than 102.5 degrees F, redness, separation of wound, drainage, or increasing pain from the incision) 2. blood clots in legs (pain, swelling, redness and warmth in legs) 3. urinary tract infection (fever higher than 102.5 degrees F, burning upon urination or increased frequency of urination) 4. nerve problems (inability to walk on your toes or heels, numbness, loss of bowel or bladder control) 5. any other symptoms that concern you C. Please call the office at if you have any concerns or questions about your operation or recovery. D. No smoking! Smoking drastically decreases the chance of a solid fusion. E. Do not take any anti-inflammatory medications (Indocin, Advil, Motrin, Aspirin, Naprosyn, etc.) as these may inhibit the chance of a solid fusion. Tylenol is okay to take for pain. MANAGING PAIN AFTER SPINAL SURGERY 1. Narcotic medication is intended for short-term use and will be provided for surgical pain. Surgical pain usually lasts for a period of 4-6 weeks. Narcotic medication includes Percocet, Vicodin, Darvocet, Tylenol #3 or Lortab. 2. Longer-term pain is more appropriately treated with non-narcotic medication such as Tylenol ES. 3. Muscle spasm is not appropriately treated with narcotics. Muscle relaxers such as Soma, Flexeril or Skelaxin can be used along with Tylenol ES. 4. Remember that we all live with some "aches and pains". This is not unusual or uncommon after an injury or as we get older. a. Back pain is expected and may include muscle spasms for 4 to 6 weeks after surgery. The pain should gradually improve. If the pain worsens for no apparent reason, please contact the office. b. Intermittent leg pain may also be experienced and should not be concerned about unless it worsens for no apparent reason. If so, please contact the office. 5. We will provide appropriate medication within the normal guidelines of their prescribed use. We will also be very cautious and aware of potential abuse and extended duration of patients' medication needs. a. Pain medications are for your comfort and to assist with sleep and rest so that the tissue can heal. They are not provided in order to return to normal activity and should not be used through the day. To do so or worsening pain at night can result from ongoing tissue damage and development of tolerance to the prescribed medicine. 6. Please allow 2-3 days to process refills. Prescriptions will not be mailed but must be picked up at the office. FOLLOW UP VISIT: Keep your scheduled follow-up appointment. Any questions, please call the office at . Pending Studies at Discharge: No Stand-Alone Forms: My [employer], Smoking Cessation Medications and DC Order Prescriptions: New tramadol 50 mg tablet 50 mg PO Q6H PRN (Reason: pain, moderate) Qty: 30 RF: 0 oxycodone 5 mg tablet 5 mg PO Q6H PRN (Reason: pain, severe) Qty: 30 RF: 0 Continued hydrochlorothiazide 25 mg tablet 25 mg PO QAM Qty: 90 RF: 1 allopurinol 100 mg tablet 100 mg PO BID Qty: 180 RF: 3 gabapentin 600 mg tablet 600 - 1,200 mg PO BID RF: 0 metoprolol tartrate 25 mg tablet 25 mg PO BID Qty: 180 RF: 3 cholecalciferol (vitamin D3) 50 mcg (2,000 unit) capsule 50 mcg PO QAM RF: 0 finasteride [Proscar] 5 mg tablet 5 mg PO HS RF: 0 tamsulosin [Flomax] 0.4 mg capsule 0.4 mg PO BID RF: 0 simvastatin [Zocor] 20 mg tablet 20 mg PO QPM RF: 0 eszopiclone [Lunesta] 2 mg tablet 2 mg PO HS PRN (Reason: sleep) RF: 0 Eliquis 5 mg tablet 5 mg PO BID RF: 0 Discharge Orders: Discharge Order (Routine); Ordered 11/21/21 Ordered By: Tico Campos Admission Data Admit Date/Time: 11/18/21 11:49 Attending Provider: Tico Campos Admit Provider: Tico Campos Primary Care Provider: Melinda Howard V. Other Providers: Pierre Odonnell
== END 2021-11-21 13:20 | disposition home or self-care (01) | DRG 454 ==
LOC: ASU 07:14 → 3E 11:49
DX: E78.5 Hyperlipidemia, unspecified; N40.1 Benign prostatic hyperplasia with lower urinary tract symptoms; Z90.09 Acquired absence of other part of head and neck; I48.92 Unspecified atrial flutter; M19.90 Unspecified osteoarthritis, unspecified site; M10.9 Gout, unspecified; I34.0 Nonrheumatic mitral (valve) insufficiency; M48.062 Spinal stenosis, lumbar region with neurogenic claudication; G47.30 Sleep apnea, unspecified; I10 Essential (primary) hypertension; Z85.828 Personal history of other malignant neoplasm of skin; M35.3 Polymyalgia rheumatica; Z87.891 Personal history of nicotine dependence; I48.91 Unspecified atrial fibrillation; Z01.812 Encounter for preprocedural laboratory examination; Z96.653 Presence of artificial knee joint, bilateral; Z96.641 Presence of right artificial hip joint; I27.20 Pulmonary hypertension, unspecified; G62.9 Polyneuropathy, unspecified; K21.9 Gastro-esophageal reflux disease without esophagitis; G89.29 Other chronic pain; I45.2 Bifascicular block